=== PATIENT | female | born 1965 | race Caucasian/White ===

== ENCOUNTER 2016-03-29 22:38 | Emergency (ER) | payer MEDICARE, OTHER ==
[~2016-03-29] VITALS: Ht 167.6 cm; Wt 74.8 kg
[~2016-03-29 22:38] MED LIST: ADVAIR HFA 115-12 GM INH; ALBUTEROL SULF8.5 GM INH; AMBIEN5 MG ORAL; AMOXICILIN PO; AMOXICILLIN500 MG ORAL; ATIVAN1 MG ORAL; ATIVAN2 MG/ML IM; AZITHROMYCIN250 MG ORAL; AZITHROMYCIN250 MG PO; BACITRACIN15 GM TOPIC; BACTRIM DS TAB1 EAC1 ORAL; CATAPRES0.1 MG ORAL; CIPRO500 MG PO; DILAUDID4 MG ORAL; DOXYCYCLINE MO100 M2 PO; DOXYCYCLINE MO100 MG ORAL; FIORICET1 EA ORAL; IBUPROFEN600 MG PO; IMITREX50 MG ORAL; INDERAL10 MG PO; INDERAL20 MG PO; KEFLEX500 MG ORAL; KETOCONAZOLE15 GM TOP; METRONIDAZOLE500 MG ORAL; MYLANTA30 M1 ORAL; NEURONTIN100 MG ORAL; NORCO 10/3251 EA ORAL; ONDANSETRON ODT4 MG ORAL; PROPRANOLOL HCL60 M1 PO; ROBAXIN500 MG PO; ROBITUSSIN100 MG/52 ORAL; SOMA350 MG PO; TRAMADOL HCL50 MG ORAL; TRAMADOL HCL50 MG PO; ULTRAM50 MG PO; VALIUM2 MG ORAL; VICODIN 5-5001 EACH PO; ZITHROMAX250 MG ORAL; ZOFRAN ODT4 MG ORAL
--- NOTE | 2016-03-29 22:59 | Emergency Room Report ---
History of Present Illness General Chief Complaint: Medication Refill Source: Patient Present Illness HPI Is a 50-year-old female who is visiting from [place]. She forgot to bring her Inderal for mitral valve prolapse and Neurontin for neuropathy. She's been out of it for 2 days. Limited back for another couple days. Denies any fever chills denies any nausea vomiting. No other complaint. Allergies: Coded Allergies: ASPIRIN (Verified Allergy, Intermediate, disorientation, 08/07/12) NSAIDS (NON-STEROIDAL ANTI-INFLAMMA (Verified Adverse Reaction, Intermediate, GI UPSET, 01/18/12) Patient History Past Medical History: see triage record, old chart reviewed Past Surgical History: other Pertinent Family History: none Social History: Denies: drug use Now: No Immunizations: other Reviewed Nursing Documentation: PMH: Agreed, PSxH: Agreed Nursing Documentation-PMH Hx Asthma: Yes Hx Gastrointestinal Problems: Yes Hx Neurological Problems: Yes - DISC Review of Systems Eye: Denies: blurred vision, eye pain ENT: Denies: ear pain, nose congestion, throat swelling Respiratory: Denies: cough, shortness of breath Cardiovascular: Denies: chest pain, palpitations Gastrointestinal: Denies: abdominal pain, diarrhea, nausea, vomiting Musculoskeletal: Denies: back pain, joint pain Skin: Denies: rash Neurological: Denies: headache, numbness Endocrine: Denies: increased thirst, increased urine Hematologic/Lymphatic: Denies: easy bruising All Other Systems: negative except mentioned in HPI Physical Exam Vital Signs Date Time Temp Pulse Resp B/P Pulse Ox O2 Delivery O2 Flow Rate FiO2 03/29/16 22:46 97.5 128 15 121/80 96 Room Air vitals with tachycardia Sp02 EP Interpretation: reviewed, normal General Appearance: well appearing, no apparent distress, alert Head: normocephalic, atraumatic Eyes: bilateral eye EOMI, bilateral eye PERRL ENT: hearing grossly normal, normal pharynx Neck: full range of motion, supple, no meningismus Respiratory: chest non-tender, lungs clear, normal breath sounds Cardiovascular #1: regular rate, rhythm, no murmur, tachycardia Gastrointestinal: normal bowel sounds, non tender, no mass, no organomegaly, no bruit, non-distended Musculoskeletal: back normal, gait/station normal, normal range of motion Neurologic: alert, oriented x3 Psychiatric: mood/affect normal Skin: warm/dry Medical Decision Making Diagnostic Impression: Primary Impression: Encounter for medication refill Additional Impression: Arthralgia Qualified Codes: M25.50 - Pain in unspecified joint ER Course Patient here for refill her medication. She also complained of generalized aches and pain. No evidence of ACS, PE, infection. We'll discharge home. Last Vital Signs Date Time Temp Pulse Resp B/P Pulse Ox O2 Delivery O2 Flow Rate FiO2 03/29/16 22:46 97.5 128 15 121/80 96 Room Air Status: improved Disposition: HOME, SELF-CARE Condition: Stable Scripts Propranolol Hcl* (INDERAL*) 40 Mg Tablet 40 MG ORAL BID, #60 TAB 0 Refills Prov: CONSTANZA GERMAIN M.D. 03/29/16 Gabapentin (Neurontin) 300 Mg Capsule 300 MG ORAL THREE TIMES A DAY, #60 CAP 0 Refills Prov: CONSTANZA GERMAIN M.D. 03/29/16 Patient Instructions: Medicine Refill at the Emergency Department Additional Instructions: Followup your DrGiorgio for refills any medication. Return if symptom worsen. Follow with within a week. CONSTANZA GERMAIN M.D. Mar 29, 2016 22:59
[2016-03-29] MEDS ORDERED: Propranolol 10mg tab ORAL ONE (23:00)
[2016-03-29] MEDS ORDERED: PROPRANOLOL HCL40 MG ORAL (23:45)
[2016-03-29] MEDS ORDERED: NEURONTIN300 MG ORAL (23:45)
[2016-03-29] MEDS ORDERED: Acetaminophen 500mg (ES) tab ORAL ONE (23:45)
[2016-03-29 23:59] VITALS: BP 113/83
[2016-07-10] MEDS ORDERED: CYCLOBENZAPRINE10 MG ORAL (13:40)
[2016-07-10] MEDS ORDERED: ZOFRAN ODT4 MG ORAL (13:40)
== END 2016-03-29 23:59 | disposition home or self-care (01) ==
LOC: EMR 23:10
DX: Z76.0 Encounter for issue of repeat prescription (principal); M25.50 Pain in unspecified joint; J45.909 Unspecified asthma, uncomplicated; I34.1 Nonrheumatic mitral (valve) prolapse; G62.9 Polyneuropathy, unspecified; Z88.6 Allergy status to analgesic agent
CPT/HCPCS: 99284

== ENCOUNTER 2016-04-10 18:40 | Emergency (ER) | payer MEDICARE, OTHER ==
[~2016-04-10] VITALS: Ht 167.6 cm; Wt 74.8 kg
[~2016-04-10 18:40] MED LIST changes: +NEURONTIN300 MG ORAL; +PROPRANOLOL HCL40 MG ORAL
[2016-04-10] MEDS ORDERED: Metoclopramide 10mg/2ml Inj IM ONE (20:15)
[2016-04-10] MEDS ORDERED: Loperamide 2mg cap ORAL ONE (20:30)
[2016-04-10 21:24] LABS: APPEARANCE,URINE CLEAR; KETONES,URINE NEGATIVE (NEGATIVE); LEUKOCYTE ESTERASE ,URINE NEGATIVE (NEGATIVE); NITRITE,URINE NEGATIVE (NEGATIVE); PH,URINE 6 (4.5-8.0); PROTEIN,URINE NEGATIVE (NEGATIVE); UROBILINOGEN,URINE NORMAL MG/DL (0.0-1.0)
[2016-04-10] MEDS ORDERED: ZOFRAN4 M3 ORAL (21:34)
[2016-04-10] MEDS ORDERED: LOPERAMIDE2 M1 PO (21:34)
[2016-04-10 21:54] VITALS: BP 125/82
--- NOTE | 2016-04-13 21:01 | Emergency Room Report ---
History of Present Illness General Chief Complaint: Diarrhea Source: Patient Present Illness HPI Patient is a 50-year-old female presented after increased had diarrhea. The patient thinks that she may have some bad food exposure. The patient prior history of chronic pain. Patient reported having a prior history of migraine and states that she been having increased throbbing type headache associated with some nausea. She reported having some watery diarrhea. She denied any hematemesis or bloody stools. She denied any severe abdominal pain. She reported having some abdominal cramping. She denied any localized pain to her abdomen. Allergies: Coded Allergies: ASPIRIN (Verified Allergy, Intermediate, disorientation, 08/07/12) NSAIDS (NON-STEROIDAL ANTI-INFLAMMA (Verified Adverse Reaction, Intermediate, GI UPSET, 01/18/12) Patient History Past Medical History: see triage record Now: No Reviewed Nursing Documentation: PMH: Agreed, PSxH: Agreed Nursing Documentation-PMH Hx Asthma: Yes Hx Gastrointestinal Problems: Yes Hx Neurological Problems: Yes - DISC Review of Systems All Other Systems: negative except mentioned in HPI Physical Exam Vital Signs Date Time Temp Pulse Resp B/P Pulse Ox O2 Delivery O2 Flow Rate FiO2 04/10/16 19:50 98.6 119 18 140/89 98 Room Air Sp02 EP Interpretation: reviewed, normal General Appearance: normal inspection, well appearing, no apparent distress, alert, GCS 15 Head: atraumatic ENT: normal ENT inspection, hearing grossly normal, normal voice Neck: normal inspection, full range of motion, supple, no bony tend Respiratory: normal inspection, lungs clear, normal breath sounds, no respiratory distress, no retraction, no wheezing Cardiovascular #1: regular rate, rhythm, no edema Gastrointestinal: normal inspection, normal bowel sounds, non tender, soft, no guarding, no hernia Genitourinary: no CVA tenderness Musculoskeletal: normal inspection, back normal, normal range of motion Neurologic: normal inspection, alert, oriented x3, responsive, speech normal Psychiatric: normal inspection, judgement/insight normal, mood/affect normal Skin: normal color, no rash, other - multiple excoriations Medical Decision Making Diagnostic Impression: Primary Impression: Diarrhea Additional Impression: Enteritis ER Course Patient presented for abdominal pain. Differential diagnoses included ischemic bowel, appendicitis, perforated viscus, abdominal aortic aneurysm, inferior myocardial infarction, viral gastroenteritis Patient's benign exam and does not appear to require any further imaging or laboratory testing at this time. The patient was given IM Reglan as well as Imodium. The patient stated that she had improvement in both her headache and diarrhea. The patient does not appear imaging at this time and she's had prior history of migraine type headaches and this appears to be a viral illness. The patient is advised to follow up with primary care doctor in 1-2 days. Patient is advised to return if any worsening condition or if any changes in status that are concerning. Labs Test 04/10/16 21:00 Urine Color Pale yellow Urine Appearance Clear Urine pH 6 (4.5-8.0) Urine Specific [place] 1.010 (1.005-1.035) Urine Protein Negative (NEGATIVE) Urine Glucose (UA) Negative (NEGATIVE) Urine Ketones Negative (NEGATIVE) Urine Occult Blood Negative (NEGATIVE) Urine Nitrite Negative (NEGATIVE) Urine Bilirubin Negative (NEGATIVE) Urine Urobilinogen Normal MG/DL (0.0-1.0) Urine Leukocyte Esterase Negative (NEGATIVE) Urine Opiates Screen Negative (NEGATIVE) Urine Barbiturates Screen Negative (NEGATIVE) Phencyclidine (PCP) Screen Negative (NEGATIVE) Urine Amphetamines Screen Negative (NEGATIVE) Urine Benzodiazepines Screen Negative (NEGATIVE) Urine Cocaine Screen Negative (NEGATIVE) Urine Marijuana (THC) Screen Positive (NEGATIVE) Last Vital Signs Date Time Temp Pulse Resp B/P Pulse Ox O2 Delivery O2 Flow Rate FiO2 04/10/16 21:54 98.3 100 18 125/82 98 Room Air Status: improved Disposition: HOME, SELF-CARE Condition: Stable Scripts Ondansetron* (ZOFRAN*) 4 Mg Tablet 4 MG ORAL Q6H Y for Nausea & Vomiting, #14 TAB Prov: Jordan Mckeon 04/10/16 Loperamide Hcl (LOPERAMIDE) 2 Mg Tablet 2 MG PO TWICE A DAY for Diarrhea, #14 TAB Prov: Jordan Mckeon 04/10/16 Referrals: NOT CHOSEN IPA/MD,REFERRING (PCP) Patient Instructions: Rehydration, Adult Jordan Mckeon Apr 13, 2016 21:00
[2016-07-10] MEDS ORDERED: ZOFRAN ODT4 MG ORAL (13:40)
[2016-07-10] MEDS ORDERED: CYCLOBENZAPRINE10 MG ORAL (13:40)
== END 2016-04-10 21:55 | disposition home or self-care (01) ==
LOC: EMR 21:45
DX: R19.7 Diarrhea, unspecified (principal); K52.9 Noninfective gastroenteritis and colitis, unspecified; R51 Headache; R11.0 Nausea; Z88.6 Allergy status to analgesic agent; Z87.19 Personal history of other diseases of the digestive system; Z87.09 Personal history of other diseases of the respiratory system
CPT/HCPCS: 80300; 81003; 96372; 99283; J2765

== ENCOUNTER 2016-05-08 11:14 | Emergency (ER) | payer MEDICARE, OTHER ==
[~2016-05-08] VITALS: Ht 167.6 cm; Wt 74.8 kg
[~2016-05-08 11:14] MED LIST changes: +LOPERAMIDE2 M1 PO; +ZOFRAN4 M3 ORAL
[2016-05-08 12:20] VITALS: BP 125/88
[2016-05-08] MEDS ORDERED: Metoclopramide 10mg/10ml Liq ORAL ONE (12:30)
--- NOTE | 2016-05-08 12:37 | Emergency Room Report ---
History of Present Illness General Chief Complaint: General Complaint Present Illness HPI 50-year-old female presents to the emergency department c/o migraine 01/01 in severity She describes her typical migraine, is not currently prescribed medications. previously was on Imitrex and Topamax, however her Dr. hutchinson due to consistent use he was worried about rebound CROWELL as SE. patient denies weakness, vomiting, recent head injury or recent spinal procedure. Patient reports nausea and mild photophobia. Patient describes pulsatile headache located in the front, with progressive onset. She denies recent head injury, fevers or chills or neck pain. Denies CP, Palpitations, LOC, AMS, dizziness, Changes in Vision, Sensation, paresthesias, or a sudden severe headache. Allergies: Coded Allergies: ASPIRIN (Verified Allergy, Intermediate, disorientation, 08/07/12) NSAIDS (NON-STEROIDAL ANTI-INFLAMMA (Verified Adverse Reaction, Intermediate, GI UPSET, 01/18/12) Patient History Past Medical History: see triage record Past Surgical History: none Pertinent Family History: none Last Menstrual Period: 2009 Now: No Immunizations: UTD Reviewed Nursing Documentation: PMH: Agreed, PSxH: Agreed Nursing Documentation-PMH Hx Asthma: Yes Hx Gastrointestinal Problems: Yes Hx Neurological Problems: Yes - DISC Review of Systems All Other Systems: negative except mentioned in HPI Physical Exam Vital Signs Date Time Temp Pulse Resp B/P Pulse Ox O2 Delivery O2 Flow Rate FiO2 05/08/16 12:10 97.3 114 20 125/88 100 Room Air Sp02 EP Interpretation: reviewed, normal General Appearance: no apparent distress, alert, GCS 15, non-toxic Head: normocephalic, atraumatic Eyes: bilateral eye PERRL, bilateral eye normal inspection ENT: hearing grossly normal, normal pharynx, no angioedema, normal voice Neck: full range of motion, supple/symm/no masses Respiratory: chest non-tender, lungs clear, normal breath sounds, speaking full sentences Cardiovascular #1: regular rate, rhythm, no edema Gastrointestinal: normal bowel sounds, non tender, soft, no guarding, no rebound Rectal: deferred Musculoskeletal: back normal, gait/station normal, normal range of motion, no calf tenderness Neurologic: alert, oriented x3, responsive, motor strength/tone normal, sensory intact, speech normal, no pronator Psychiatric: judgement/insight normal, memory normal, mood/affect normal, no suicidal/homicidal ideation Skin: normal color, no rash, warm/dry, well hydrated Lymphatic: no adenopathy Medical Decision Making PA Attestation Dr. Baez is my supervising Physician whom patient management has been discussed with. Diagnostic Impression: Primary Impression: migraine ER Course Pt. presents to the ED c/o migraine 10/10 in severity ., describes typical migraine, is not currently prescribed medications. previously was on immitrex and topamax, however her d/bryan due to consistent use he was worried about rebound CROWELL as SE. Ddx considered but are not limited to migraine, SAH, Psedudo motor Cerebri, Mass lesion, Cluster CROWELL, Tension CROWELL, Post lumbar puncture CROWELL. Vital signs: are WNL, pt. is afebrile H&PE are most consistent with migraine headache ORDERS: none required at this time. ED INTERVENTIONS: -10mlgReglan - 1000mg Tylenol PO DISCHARGE: At this time pt. is stable for d/c to home. Will provide printed patient care instructions, and any necessary prescriptions. Care plan and follow up instructions have been discussed with the patient prior to discharge. Last Vital Signs Date Time Temp Pulse Resp B/P Pulse Ox O2 Delivery O2 Flow Rate FiO2 05/08/16 12:20 97.3 114 20 125/88 100 Room Air Disposition: HOME, SELF-CARE Condition: Stable Scripts Metoclopramide Hcl* (REGLAN*) 10 Mg Tablet 10 MG ORAL THREE TIMES A DAY, #20 TAB Prov: Carla Urbano P.A. 05/08/16 Acetamin/Butalbital/Caffeine* (FIORICET*) 1 Ea Tab 1 TAB ORAL Q6H, #5 TAB 0 Refills Prov: Carla Urbano P.A. 05/08/16 Referrals: NOT CHOSEN IPA/,REFERRING (PCP) Patient Instructions: Migraine Headache, [id number] Additional Instructions: Take medications as directed. Follow up with Neurologist in 3-5 days Return sooner to ED if new symptoms occur, or current symptoms become worse. Do not drink alcohol, drive, or operate heavy machinery while taking Fioricet as this may cause drowsiness. - Please note that this Emergency Department Report was dictated using [employer] laboratory technician technology software, occasionally this can lead to erroneous entry secondary to interpretation by the dictation equipment. Carla Urbano May 08, 2016 12:37
[2016-05-08 13:00] VITALS: BP 123/85
[2016-05-08] MEDS ORDERED: Acetaminophen 500mg (ES) tab ORAL ONE (13:00)
[2016-05-08] MEDS ORDERED: REGLAN10 MG ORAL (13:08)
[2016-05-08] MEDS ORDERED: FIORICET1 EA ORAL (13:08)
[2016-05-08 13:26] VITALS: BP 123/85
[2016-07-10] MEDS ORDERED: CYCLOBENZAPRINE10 MG ORAL (13:40)
[2016-07-10] MEDS ORDERED: ZOFRAN ODT4 MG ORAL (13:40)
== END 2016-05-08 13:27 | disposition home or self-care (01) ==
LOC: EMR 12:30
DX: G43.909 Migraine, unspecified, not intractable, without status migrainosus (principal); J45.909 Unspecified asthma, uncomplicated; Z88.6 Allergy status to analgesic agent
CPT/HCPCS: 99284

== ENCOUNTER 2016-05-19 12:48 | Emergency (ER) | payer MEDICARE, OTHER ==
[~2016-05-19] VITALS: Ht 167.6 cm; Wt 74.8 kg
[~2016-05-19 12:48] MED LIST changes: +REGLAN10 MG ORAL
[2016-05-19] MEDS ORDERED: Acetaminophen 500mg (ES) tab ORAL ONE (13:45)
[2016-05-19] MEDS ORDERED: Metoclopramide 10mg/10ml Liq ORAL ONE (13:45)
--- NOTE | 2016-05-19 14:12 | Emergency Room Report ---
History of Present Illness General Chief Complaint: Headache Present Illness HPI 50-year-old male presents emergency department complaining of 9/10 in severity progressive right sided throbbing headache x2 days. Patient has a history of migraines, and states that the headache that she currently has similar to migraines that she has had in the past. Patient also reports photophobia and mild nausea denies vomiting. Denies recent head injury/trauma. Patient denies weakness, imbalance, dizziness. She states that she is out of her migraine medication Fioricet at home. Patient states that her appointment with her neurologist is May 23. Pt also c/o increased in her heartburn symptoms, pt. states she has a hx of GERD however does not regularly take medications. Denies CP, Palpitations, LOC, AMS, dizziness, Changes in Vision, Sensation, paresthesias, or a sudden severe headache. Allergies: Coded Allergies: ASPIRIN (Verified Allergy, Intermediate, disorientation, 08/07/12) NSAIDS (NON-STEROIDAL ANTI-INFLAMMA (Verified Adverse Reaction, Intermediate, GI UPSET, 01/18/12) Patient History Past Medical History: see triage record, migraines Past Surgical History: none Pertinent Family History: none Now: No : 1 Para: 0 Reviewed Nursing Documentation: PMH: Agreed, PSxH: Agreed Nursing Documentation-PMH Hx Asthma: Yes Hx Gastrointestinal Problems: Yes - Peptic ulcer Hx Neurological Problems: Yes - Degenerative disc disease Review of Systems All Other Systems: negative except mentioned in HPI Physical Exam Vital Signs Date Time Temp Pulse Resp B/P Pulse Ox O2 Delivery O2 Flow Rate FiO2 05/19/16 12:54 98.2 115 16 120/81 99 Room Air Sp02 EP Interpretation: reviewed, abnormal - tachycardic at 116 bpm General Appearance: no apparent distress, alert, GCS 15, non-toxic Head: normocephalic, atraumatic Eyes: bilateral eye PERRL, bilateral eye normal inspection, bilateral eye photophobia ENT: hearing grossly normal, normal pharynx, no angioedema, normal voice Neck: full range of motion, no meningismus, no bony tend, supple/symm/no masses Respiratory: lungs clear, normal breath sounds, speaking full sentences Cardiovascular #1: regular rate, rhythm, no edema Gastrointestinal: non tender, soft, non-distended Rectal: deferred Genitourinary: normal inspection, no CVA tenderness Musculoskeletal: back normal, gait/station normal, normal range of motion, non- tender, no calf tenderness Neurologic: alert, oriented x3, responsive, motor strength/tone normal, sensory intact, speech normal Psychiatric: judgement/insight normal, memory normal, mood/affect normal, no suicidal/homicidal ideation Reflexes: 4+ bicep (R), 4+ bicep (L), 4+ tricep (R), 4+ tricep (L), 4+ knee (R) , 4+ knee (L) Skin: normal color, no rash, warm/dry, well hydrated Lymphatic: no adenopathy Medical Decision Making PA Attestation Dr. Urban is my supervising Physician whom patient management has been discussed with. Diagnostic Impression: Primary Impression: migraine Additional Impression: History of gastroesophageal reflux (GERD) ER Course 50-year-old male presents emergency department complaining of 9/10 in severity progressive right sided throbbing headache x2 days. Patient has a history of migraines, and states that the headache that she currently has similar to migraines that she has had in the past. Patient also reports photophobia and mild nausea denies vomiting. Denies recent head injury/trauma. Patient denies weakness, imbalance, dizziness. She states that she is out of her migraine medication Fioricet at home. Pt also c/o increased in her heartburn symptoms, pt. states she has a hx of GERD however does not regularly take medications Ddx considered but are not limited to migraine, SAH, Psedudo motor Cerebri, Mass lesion, Cluster CROWELL, Tension CROWELL, Post lumbar puncture CROWELL, GERD, ACS Vital signs: are WNL, pt. is afebrile H&PE are most consistent with migraine headache ORDERS: No imaging required at this time as no focal neuro deficits, pt. described progressive onset of CROWELL similar to migraines she has experienced in the past. -UA: unremarkable, few bacteria, few squamous cells, no WBC's, no Leuks, consistent w/ contaminated specimen. - EKG ( Performed without initial order, as in triage pt. c/o chest pain, upon PE pt. has hx of GERD and described burning sensation in epigastric area) 105 sinus tachycardic with no acute ST elevations, most likely secondary to migraine pain per interpretation by Dr. Baez. ED INTERVENTIONS: -10mg Reglan PO -1000mg Tylenol PO -150mg Zantac PO Upon re-evaluation pt states all of her symptoms have subsided. DISCHARGE: At this time pt. is stable for d/c to home. Will provide printed patient care instructions, and any necessary prescriptions. Care plan and follow up instructions have been discussed with the patient prior to discharge. Labs Test 05/19/16 14:16 Urine Color Yellow Urine Appearance Clear Urine pH 6.5 (4.5-8.0) Urine Specific [place] 1.015 (1.005-1.035) Urine Protein 1+ (NEGATIVE) Urine Glucose (UA) Negative (NEGATIVE) Urine Ketones 1+ (NEGATIVE) Urine Occult Blood Negative (NEGATIVE) Urine Nitrite Negative (NEGATIVE) Urine Bilirubin Negative (NEGATIVE) Urine Urobilinogen Normal MG/DL (0.0-1.0) Urine Leukocyte Esterase 1+ (NEGATIVE) Urine RBC 0-2 /HPF (0 - 2) Urine WBC 2-4 /HPF (0 - 2) Urine Squamous Epithelial Cells Few /LPF (NONE/OCC) Urine Bacteria Few /HPF (NONE) EKG Diagnostic Results EP Interpretation: interpreted by Dr. Baez Rate: tachycardiac Rhythm: NSR ST Segments: no acute changes ASA given to the pt in ED: No PA Scribe Text 105 sinus tachycardia, most likely secondary to migraine pain per interpretation by Dr. Baez. Last Vital Signs Date Time Temp Pulse Resp B/P Pulse Ox O2 Delivery O2 Flow Rate FiO2 05/19/16 12:54 98.2 115 16 120/81 99 Room Air Scripts Ranitidine Hcl* (ZANTAC*) 150 Mg Tablet 150 MG ORAL TWICE A DAY, #30 TAB Prov: Carla Urbano 05/19/16 Acetamin/Butalbital/Caffeine* (FIORICET*) 1 Ea Tab 1 TAB ORAL Q6H, #5 TAB 0 Refills Prov: Carla Urbano 05/19/16 Patient Instructions: Migraine Headache Additional Instructions: Take medications as directed. Follow up with Neurologist in 3-5 days Return sooner to ED if new symptoms occur, or current symptoms become worse. Do not drink alcohol, drive, or operate heavy machinery while taking Fioricet as this may cause drowsiness. - Please note that this Emergency Department Report was dictated using [employer] captain technology software, occasionally this can lead to erroneous entry secondary to interpretation by the dictation equipment. Carla Urbano May 19, 2016 14:12
[2016-05-19 14:29] LABS: APPEARANCE,URINE CLEAR; KETONES,URINE 1+ (NEGATIVE); LEUKOCYTE ESTERASE ,URINE 1+ (NEGATIVE); NITRITE,URINE NEGATIVE (NEGATIVE); PH,URINE 6.5 (4.5-8.0); PROTEIN,URINE 1+ (NEGATIVE); UROBILINOGEN,URINE NORMAL MG/DL (0.0-1.0)
[2016-05-19 14:39] LABS: BACTERIA,URINE FEW /HPF; RBC,URINE 0-2 /HPF (0 - 2); SQUAMOUS EPITHELIAL CELL,UR FEW /LPF (NONE/OCC)
[2016-05-19] MEDS ORDERED: FIORICET1 EA ORAL (14:45)
[2016-05-19 15:08] VITALS: BP 120/81
[2016-05-19] MEDS ORDERED: ZANTAC150 MG ORAL (15:16)
[2016-05-19 15:17] VITALS: BP 129/63
--- NOTE | 2016-05-23 23:41 | Cardiology Report ---
APPROVED REPORT EKG Measurement Heart [id number] Sinus tachycardia Otherwise normal ECG
[2016-07-10] MEDS ORDERED: CYCLOBENZAPRINE10 MG ORAL (13:40)
[2016-07-10] MEDS ORDERED: ZOFRAN ODT4 MG ORAL (13:40)
== END 2016-05-19 15:20 | disposition home or self-care (01) ==
LOC: EMR 14:15
DX: G43.909 Migraine, unspecified, not intractable, without status migrainosus (principal); Z87.19 Personal history of other diseases of the digestive system; R11.0 Nausea; Z88.6 Allergy status to analgesic agent
CPT/HCPCS: 81003; 93005; 99284

== ENCOUNTER 2016-06-12 09:44 | Emergency (ER) | payer MEDICARE, OTHER ==
[~2016-06-12] VITALS: Ht 167.6 cm; Wt 78.0 kg
[~2016-06-12 09:44] MED LIST changes: +ZANTAC150 MG ORAL
[2016-06-12 10:10] VITALS: BP 128/92
[2016-06-12] MEDS ORDERED: ROBAXIN-750750 MG PO (11:26)
[2016-06-12] MEDS ORDERED: TRAMADOL HCL50 MG ORAL (11:26)
[2016-06-12 11:39] VITALS: BP 128/92
--- NOTE | 2016-06-12 11:41 | Emergency Room Report ---
History of Present Illness General Chief Complaint: Back Pain-No Injury Source: Patient Present Illness HPI 50 YO F with upper left back spasm since yesterday. Denies heavy lifting, direct trauma. Has had before. Thinks she "lay on it funny." Requesting Rx Tramadol, Robaxin. CURES indicates recent Rx for Tramadol but patient states " I finished it." Denies lower extremity pain, fever/chills, urinary complaints, retention. States she was at [facility] 3 days ago for similar request. Allergies: Coded Allergies: ASPIRIN (Verified Allergy, Intermediate, disorientation, 08/07/12) NSAIDS (NON-STEROIDAL ANTI-INFLAMMA (Verified Adverse Reaction, Intermediate, GI UPSET, 01/18/12) Patient History Past Medical History: other - back pain Past Surgical History: none Pertinent Family History: none Social History: Denies: alcohol use, drug use, smoking Last Menstrual Period: na Now: No Immunizations: UTD Reviewed Nursing Documentation: PMH: Agreed, PSxH: Agreed Nursing Documentation-PMH Past Medical History: No History, Except For Hx Asthma: Yes Hx Gastrointestinal Problems: Yes - Peptic ulcer Hx Neurological Problems: Yes Review of Systems All Other Systems: negative except mentioned in HPI Physical Exam Vital Signs Date Time Temp Pulse Resp B/P Pulse Ox O2 Delivery O2 Flow Rate FiO2 06/12/16 09:56 98.2 83 18 128/92 98 Room Air Sp02 EP Interpretation: reviewed, normal General Appearance: normal inspection, well appearing, no apparent distress, alert Head: atraumatic ENT: normal ENT inspection, hearing grossly normal, normal voice Neck: normal inspection, full range of motion, supple, no bony tend Respiratory: normal inspection, lungs clear, normal breath sounds, no respiratory distress, no retraction, no wheezing Cardiovascular #1: regular rate, rhythm, no edema Gastrointestinal: normal inspection, normal bowel sounds, non tender, soft, no guarding, no hernia Genitourinary: no CVA tenderness Musculoskeletal: normal inspection, back normal, normal range of motion, Christy' s Sign negative Neurologic: normal inspection, alert, oriented x3, responsive, director geothermal operations III-XII nml as tested, motor strength/tone normal, speech normal Psychiatric: normal inspection, judgement/insight normal, mood/affect normal Skin: normal inspection Lymphatic: normal inspection Medical Decision Making Diagnostic Impression: Primary Impression: Low back strain Additional Impression: Drug-seeking behavior ER Course I agreed to refill Rx as patient requested, despite recent Rx also for opioid. Then RN Yary tells me patient wants medication now, even though I already had conversation with patient that I would give Rx and she had confirmed she could get to Pharmacy when leaving ER I am concerned for narcotic seeking behavior if patient is demanding medication in the ED when she is more than capable to get to pharmacy during the day and has no physical limitations to prevent this. Last Vital Signs Date Time Temp Pulse Resp B/P Pulse Ox O2 Delivery O2 Flow Rate FiO2 06/12/16 10:10 98.2 83 18 128/92 98 Room Air Status: improved Disposition: HOME, SELF-CARE Condition: Improved Scripts Methocarbamol* (ROBAXIN-750*) 750 Mg Tablet 750 MG PO TID, #30 TAB 0 Refills Prov: MILY COLLINS M.D. 06/12/16 Tramadol Hcl* (ULTRAM*) 50 Mg Tablet 50 MG ORAL Q6H Y for For Pain, #30 TAB 0 Refills Prov: MILY COLLINS M.D. 06/12/16 Referrals: NON PHYSICIAN (PCP) Patient Instructions: Back Pain, Adult MILY COLLINS M.D. Jun 12, 2016 11:41
[2016-07-10] MEDS ORDERED: ZOFRAN ODT4 MG ORAL (13:40)
[2016-07-10] MEDS ORDERED: CYCLOBENZAPRINE10 MG ORAL (13:40)
== END 2016-06-12 11:41 | disposition home or self-care (01) ==
LOC: EMR 10:40
DX: S39.012A Strain of muscle, fascia and tendon of lower back, initial encounter (principal); X58.XXXA Exposure to other specified factors, initial encounter; Y93.9 Activity, unspecified; Y92.9 Unspecified place or not applicable; Z76.5 Malingerer [conscious simulation]; Z88.6 Allergy status to analgesic agent; Z87.11 Personal history of peptic ulcer disease
CPT/HCPCS: 99284

== ENCOUNTER 2016-06-17 01:51 | Emergency (ER) | payer MEDICARE, OTHER ==
[~2016-06-17] VITALS: Ht 167.6 cm; Wt 79.4 kg
[~2016-06-17 01:51] MED LIST changes: +ROBAXIN-750750 MG PO
--- NOTE | 2016-06-17 02:05 | Emergency Room Report ---
History of Present Illness General Chief Complaint: Vomiting Source: Patient Present Illness HPI Is a 50-year-old female with history of chronic pain. She's taking tramadol. She presents with chief complaint of vomiting. Said she woke up and felt hot and had several episode vomiting. She has been to several hospital in the last few days. She was at [facility] 3 days ago. She was at [facility] yesterday. Now here. She is from [place]. Patient denies chest pain. Also complaining abdominal pain. Complaining of fever and vomiting. Allergies: Coded Allergies: ASPIRIN (Verified Allergy, Intermediate, disorientation, 08/07/12) NSAIDS (NON-STEROIDAL ANTI-INFLAMMA (Verified Adverse Reaction, Intermediate, GI UPSET, 01/18/12) Patient History Past Medical History: see triage record, old chart reviewed Past Surgical History: other Pertinent Family History: none Now: No Immunizations: other Reviewed Nursing Documentation: PMH: Agreed, PSxH: Agreed Nursing Documentation-PMH Hx Asthma: Yes Hx Gastrointestinal Problems: Yes - Peptic ulcer Hx Neurological Problems: Yes Review of Systems Eye: Denies: blurred vision, eye pain ENT: Denies: ear pain, nose congestion, throat swelling Respiratory: Denies: cough, shortness of breath Cardiovascular: Denies: chest pain, palpitations Gastrointestinal: Reports: nausea, vomiting, Denies: abdominal pain, diarrhea Musculoskeletal: Denies: back pain, joint pain Skin: Denies: rash Neurological: Denies: headache, numbness Endocrine: Denies: increased thirst, increased urine Hematologic/Lymphatic: Denies: easy bruising All Other Systems: negative except mentioned in HPI Physical Exam Vital Signs Date Time Temp Pulse Resp B/P Pulse Ox O2 Delivery O2 Flow Rate FiO2 06/17/16 01:55 97.9 90 16 128/59 98 Room Air vitals normal Sp02 EP Interpretation: reviewed, normal General Appearance: well appearing, no apparent distress, alert Head: normocephalic, atraumatic Eyes: bilateral eye EOMI, bilateral eye PERRL ENT: hearing grossly normal, normal pharynx Neck: full range of motion, supple, no meningismus Respiratory: chest non-tender, lungs clear, normal breath sounds Cardiovascular #1: regular rate, rhythm, no murmur Gastrointestinal: normal bowel sounds, non tender, no mass, no organomegaly, no bruit, non-distended Musculoskeletal: back normal, gait/station normal, normal range of motion Psychiatric: mood/affect normal Skin: warm/dry Medical Decision Making Diagnostic Impression: Primary Impression: Vomiting Qualified Codes: R11.2 - Nausea with vomiting, unspecified ER Course Isn't complaining of vomiting but she came in with a half empty bottle of Coca- Cola. She has no vomiting here. She been sleeping comfortably. On the [facility] system, she has multiple prescription of tramadol another pain medication from multiple different doctors. I see no evidence of acute abdomen. Abdomen exam is soft. We'll discharge home. Last Vital Signs Date Time Temp Pulse Resp B/P Pulse Ox O2 Delivery O2 Flow Rate FiO2 06/17/16 01:55 97.9 90 16 128/59 98 Room Air Status: improved Disposition: HOME, SELF-CARE Condition: Stable Scripts Ondansetron (Zofran) 4 Mg Tablet 4 MG ORAL Q6H Y for Nausea & Vomiting, #10 TAB 0 Refills Prov: CONSTANZA GERMAIN M.D. 06/17/16 Patient Instructions: Nausea and Vomiting, Adult Additional Instructions: Followup with your DrGiorgio in 7 days. Return worse. CONSTANZA GERMAIN M.D. Jun 17, 2016 02:05
[2016-06-17] MEDS ORDERED: CLINDAMYCIN HC150 MG ORAL (02:13)
[2016-06-17] MEDS ORDERED: ZOFRAN4 MG ORAL (03:32)
[2016-06-17 03:45] VITALS: BP 122/70
[2016-07-10] MEDS ORDERED: ZOFRAN ODT4 MG ORAL (13:40)
[2016-07-10] MEDS ORDERED: CYCLOBENZAPRINE10 MG ORAL (13:40)
== END 2016-06-17 03:45 | disposition home or self-care (01) ==
LOC: EMR 03:13
DX: R11.2 Nausea with vomiting, unspecified (principal); R10.9 Unspecified abdominal pain; Z88.6 Allergy status to analgesic agent; J45.909 Unspecified asthma, uncomplicated; Z87.11 Personal history of peptic ulcer disease
CPT/HCPCS: 80300; 99283

== ENCOUNTER → 2016-07-10 | Emergency (ER) | payer MEDICARE, OTHER ==
[~2016-07-10] VITALS: Ht 167.6 cm; Wt 77.1 kg
[~2016-07-10] MED LIST changes: +CLINDAMYCIN HC150 MG ORAL; +CYCLOBENZAPRINE10 MG ORAL; +Ketorolac 60mg Inj IM ONE; +ZOFRAN4 MG ORAL
[2016-07-10 11:42] VITALS: BP 134/83
--- NOTE | 2016-07-10 13:39 | Emergency Room Report ---
History of Present Illness General Chief Complaint: Nausea Source: Patient Present Illness HPI 50 YO female presents to the ED c/o nausea, no vomiting, 7/10 Left sided sided neck pain described as "soreness, and tightness" has hx of cervical disk problems and was told she will need a fusion. pt. also has hx of migraines. Denies trauma or fall. denies weakness, imbalance, pain or paresthesias in the UE's. Denies photophobia. Pt. denies abdominal pain, abdominal tenderness, constipation or diarrhea. pt .reports stomach is "upset" and feels nauseated. Denies numbness tingling or loss of sensation or gross motor movements of the extremities, incontinence of bowel or bladder. Denies CP , Palpitations, LOC, AMS, dizziness, Changes in Vision, Sensation, paresthesias , or a sudden severe headache. Allergies: Coded Allergies: ASPIRIN (Verified Allergy, Intermediate, disorientation, 08/07/12) NSAIDS (NON-STEROIDAL ANTI-INFLAMMA (Verified Adverse Reaction, Intermediate, GI UPSET, 01/18/12) Patient History Past Medical History: see triage record Past Surgical History: none Pertinent Family History: none Last Menstrual Period: na Now: No Immunizations: UTD Reviewed Nursing Documentation: PMH: Agreed, PSxH: Agreed Nursing Documentation-PMH Past Medical History: No History, Except For Hx Asthma: Yes Hx Gastrointestinal Problems: Yes - Peptic ulcer Hx Neurological Problems: Yes Review of Systems All Other Systems: negative except mentioned in HPI Physical Exam Vital Signs Date Time Temp Pulse Resp B/P Pulse Ox O2 Delivery O2 Flow Rate FiO2 07/10/16 11:42 97.9 103 18 134/83 98 Room Air Sp02 EP Interpretation: reviewed, normal General Appearance: no apparent distress, alert, GCS 15, non-toxic Head: normocephalic, atraumatic Eyes: bilateral eye PERRL, bilateral eye normal inspection ENT: hearing grossly normal, normal pharynx, no angioedema, normal voice Neck: full range of motion, no meningismus, no bony tend, supple/symm/no masses , tender lateral - left lateral TTP, no midline TTP of obvious deformity Respiratory: chest non-tender, lungs clear, normal breath sounds, speaking full sentences Cardiovascular #1: regular rate, rhythm, no edema, normal capillary refill Gastrointestinal: normal bowel sounds, non tender, soft, no guarding, no rebound Rectal: deferred Genitourinary: normal inspection, no CVA tenderness Musculoskeletal: back normal, gait/station normal, normal range of motion, non- tender Neurologic: alert, oriented x3, responsive, motor strength/tone normal, sensory intact, cerebellar normal, normal gait, speech normal, no pronator, other - negative hoffmans Psychiatric: judgement/insight normal, memory normal, mood/affect normal Skin: normal color, no rash, warm/dry, well hydrated Lymphatic: no adenopathy Medical Decision Making PA Attestation Dr. Baez is my supervising Physician whom patient management has been discussed with. Diagnostic Impression: Primary Impression: Nausea Additional Impression: Neck muscle strain Qualified Codes: S16.1XXA - Strain of muscle, fascia and tendon at neck level , initial encounter ER Course Pt. presents to the ED c/o nausea, no vomiting, 7/10 Left sided sided neck pain described as "soreness, and tightness" has hx of cervical disk problems and was told she will need a fusion. pt. also has hx of migraines Ddx considered but are not limited to Fracture, dislocation, contusion, epidural abscess, Sprain/Strain/Spasm pt. well known to ED for multiple visits for migraine CROWELL's and Nausea. Vital signs: are WNL, pt. is afebrile H&PE are most consistent with cervical muscle strain/spasm, benign PE, no focal neurological deficit, no weakness. ORDERS: none required at this time. ED INTERVENTIONS: -IM Toradol - Zofran PO pt allowed to rest. Re-EVALUATION: pt. states her pain has subsided and feels much better would like to be d/c. DISCHARGE: At this time pt. is stable for d/c to home. Will provide printed patient care instructions, and any necessary prescriptions. Care plan and follow up instructions have been discussed with the patient prior to discharge. Last Vital Signs Date Time Temp Pulse Resp B/P Pulse Ox O2 Delivery O2 Flow Rate FiO2 07/10/16 11:42 97.9 103 18 134/83 98 Room Air Disposition: HOME, SELF-CARE Condition: Stable Scripts Cyclobenzaprine Hcl* (FLEXERIL*) 10 Mg Tablet 10 MG ORAL THREE TIMES A DAY, #10 TAB Prov: Carla Urbano 07/10/16 Ondansetron Odt* (ZOFRAN ODT*) 4 Mg Tab.rapdis 4 MG ORAL Q6H Y for Nausea & Vomiting, #10 TAB Prov: Carla Urbano 07/10/16 Patient Instructions: Muscle Strain, Ptfe-ds-Nhan, Nausea, Adult Additional Instructions: Take medications as directed. Follow up with PCP in 3-5 days Return sooner to ED if new symptoms occur, or current symptoms become worse. Do not drink alcohol, drive, or operate heavy machinery while taking Muscle relaxer as this may cause drowsiness. - Please note that this Emergency Department Report was dictated using [employer] DT[employer] prepper technology software, occasionally this can lead to erroneous entry secondary to interpretation by the dictation equipment. Carla Urbano Jul 10, 2016 13:39
--- NOTE | 2016-07-10 14:40 | Emergency Room Report ---
History of Present Illness General Chief Complaint: Nausea Source: Patient Present Illness HPI PLEASE SEE ALTERNATE NOTE, this is a blank duplicate. Allergies: Coded Allergies: ASPIRIN (Verified Allergy, Intermediate, disorientation, 08/07/12) NSAIDS (NON-STEROIDAL ANTI-INFLAMMA (Verified Adverse Reaction, Intermediate, GI UPSET, 01/18/12) Patient History Last Menstrual Period: na Nursing Documentation-PMH Past Medical History: No History, Except For Hx Asthma: Yes Hx Gastrointestinal Problems: Yes - Peptic ulcer Hx Neurological Problems: Yes Physical Exam Vital Signs Date Time Temp Pulse Resp B/P Pulse Ox O2 Delivery O2 Flow Rate FiO2 07/10/16 11:42 97.9 103 18 134/83 98 Room Air Medical Decision Making PA Attestation Dr. Baez is my supervising Physician whom patient management has been discussed with. ER Course Please see alternate note, this is a blank duplicate Last Vital Signs Date Time Temp Pulse Resp B/P Pulse Ox O2 Delivery O2 Flow Rate FiO2 07/10/16 11:42 97.9 103 18 134/83 98 Room Air Scripts Cyclobenzaprine Hcl* (FLEXERIL*) 10 Mg Tablet 10 MG ORAL THREE TIMES A DAY, #10 TAB Prov: Carla Urbano.AGiorgio 07/10/16 Ondansetron Odt* (ZOFRAN ODT*) 4 Mg Tab.rapdis 4 MG ORAL Q6H Y for Nausea & Vomiting, #10 TAB Prov: Carla Urbano.AGiorgio 07/10/16 Carla Urbano Jul 10, 2016 14:40
== END | disposition home or self-care (01) ==
LOC: EMR 12:26
DX: R11.0 Nausea (principal); S16.1XXA Strain of muscle, fascia and tendon at neck level, initial encounter; Z88.6 Allergy status to analgesic agent; J45.909 Unspecified asthma, uncomplicated; Z87.11 Personal history of peptic ulcer disease; X58.XXXA Exposure to other specified factors, initial encounter; Y92.9 Unspecified place or not applicable; Y99.8 Other external cause status
CPT/HCPCS: 96372; 99284

== ENCOUNTER 2016-07-28 21:49 | Emergency (ER) | payer MEDICARE, OTHER ==
[~2016-07-28] VITALS: Ht 167.6 cm; Wt 81.6 kg
[~2016-07-28 21:49] MED LIST changes: -Ketorolac 60mg Inj IM ONE
[2016-07-28] MEDS ORDERED: TRAMADOL HCL50 MG ORAL (22:14)
[2016-07-28] MEDS ORDERED: ZYRTEC10 MG ORAL (22:14)
[2016-07-28] MEDS ORDERED: FLONASE ALLERG9.9 ML NS (22:14)
[2016-07-28 22:29] VITALS: BP 120/79
--- NOTE | 2016-07-29 03:10 | Emergency Room Report ---
History of Present Illness General Chief Complaint: Pain Source: Patient Present Illness HPI 50-year-old female presents to ED for evaluation. Patient states she's having seasonal allergy problems. Feels runny nose and congestion. Sneezing. Denies any fevers or chills. Denies cough. Denies ear ache or sore throat. Patient states she normally uses Flonase and Zyrtec but has run out of medication. Patient also states that she has pain in her neck and her back for many years now. Pain is a 7/10, sharp, nonradiating. Patient states she normally takes tramadol for pain. States that she was recently prescribed [place] but believes it is too strong. No other aggravating or relieving factors. Denies any other associated symptoms Allergies: Coded Allergies: ASPIRIN (Verified Allergy, Intermediate, disorientation, 08/07/12) NSAIDS (NON-STEROIDAL ANTI-INFLAMMA (Verified Adverse Reaction, Intermediate, GI UPSET, 01/18/12) Patient History Past Medical History: asthma, ulcer Past Surgical History: none Pertinent Family History: none Social History: Denies: alcohol use, drug use, smoking Now: No Immunizations: UTD Reviewed Nursing Documentation: PMH: Agreed, PSxH: Agreed Nursing Documentation-PMH Hx Asthma: Yes Hx Gastrointestinal Problems: Yes - Peptic ulcer Hx Neurological Problems: Yes Review of Systems All Other Systems: negative except mentioned in HPI Physical Exam Vital Signs Date Time Temp Pulse Resp B/P Pulse Ox O2 Delivery O2 Flow Rate FiO2 07/28/16 21:54 98.1 116 16 120/79 95 Room Air Sp02 EP Interpretation: reviewed, normal General Appearance: no apparent distress, alert, GCS 15, non-toxic Head: normocephalic, atraumatic Eyes: bilateral eye PERRL, bilateral eye normal inspection ENT: hearing grossly normal, normal pharynx, no angioedema, normal voice Neck: full range of motion, supple/symm/no masses Respiratory: chest non-tender, lungs clear, normal breath sounds, speaking full sentences Cardiovascular #1: regular rate, rhythm, no edema Cardiovascular #2: 2+ carotid (R), 2+ carotid (L), 2+ radial (R), 2+ radial (L) , 2+ dorsalis pedis (R), 2+ dorsalis pedis (L) Gastrointestinal: normal bowel sounds, non tender, soft, non-distended, no guarding, no rebound Rectal: deferred Genitourinary: normal inspection, no CVA tenderness Musculoskeletal: back normal, gait/station normal, normal range of motion, non- tender Neurologic: alert, oriented x3, responsive, motor strength/tone normal, sensory intact, speech normal Psychiatric: judgement/insight normal, memory normal, mood/affect normal, no suicidal/homicidal ideation Reflexes: 3+ bicep (R), 3+ bicep (L), 3+ tricep (R), 3+ tricep (L), 3+ knee (R) , 3+ knee (L) Skin: normal color, no rash, warm/dry, well hydrated Lymphatic: no adenopathy Medical Decision Making Diagnostic Impression: Primary Impression: Seasonal allergies Qualified Codes: J30.2 - Other seasonal allergic rhinitis Additional Impression: Chronic pain ER Course 50-year-old female presents to ED refill of her medication. hospital course: After initial history and physical, she documents history of seasonal allergies and takes Zyrtec and Flonase. I agreed to provide her with refills of those medications. Patient is also requesting prescription for tramadol. States that she was recently prescribed [place] which is too strong I reviewed [facility] shows no recent prescriptions being filled. I agreed to provide her with a short course of tramadol until she sees her pain management doctor Diagnosis- seasonal allergies, chronic pain Stable and discharged to home with prescription for Tramadol, Zyrtec, Flonase. Followup with PMD. Return to ED if symptoms recur or worsen Last Vital Signs Date Time Temp Pulse Resp B/P Pulse Ox O2 Delivery O2 Flow Rate FiO2 07/28/16 22:29 98.1 16 120/79 95 Room Air 07/28/16 21:54 116 Status: improved Disposition: HOME, SELF-CARE Condition: Stable Scripts Cetirizine Hcl* (ZYRTEC*) 10 Mg Tablet 10 MG ORAL DAILY, #30 TAB 0 Refills Prov: TAMIKO PATRICIA M.D. 07/28/16 Fluticasone Propionate (Flonase Allergy Relief) 9.9 Ml [place].susp 1 SPRAYS NS BID, #1 UNIT Prov: TAMIKO PATRICIA M.D. 07/28/16 Tramadol Hcl* (ULTRAM*) 50 Mg Tablet 50 MG ORAL Q6H Y for For Pain, #10 TAB 0 Refills Prov: TAMIKO PATRICIA M.D. 07/28/16 Referrals: NON PHYSICIAN (PCP) Patient Instructions: Allergies, [id number] TAMIKO PATRICIA M.D. July 29, 2016 03:10
== END 2016-07-28 22:30 | disposition home or self-care (01) ==
LOC: EMR 22:30
DX: J30.2 Other seasonal allergic rhinitis (principal); G89.29 Other chronic pain; Z88.6 Allergy status to analgesic agent; J45.909 Unspecified asthma, uncomplicated
CPT/HCPCS: 99284

== ENCOUNTER 2016-07-31 16:32 | Emergency (ER) | payer MEDICARE, OTHER ==
[~2016-07-31] VITALS: Ht 170.2 cm; Wt 79.4 kg
[~2016-07-31 16:32] MED LIST changes: +FLONASE ALLERG9.9 ML NS; +ZYRTEC10 MG ORAL
[2016-07-31 17:06] VITALS: BP 122/93
[2016-07-31] MEDS ORDERED: Cephalexin 500mg cap ORAL ONE (17:15)
[2016-07-31] MEDS ORDERED: Tylenol #3 tab (300mg/30mg) ORAL ONE (17:15)
[2016-07-31] MEDS ORDERED: CEPHALEXIN500 MG ORAL (17:24)
[2016-07-31] MEDS ORDERED: ACETAMINOPHEN-1 EAC1 ORAL (17:24)
[2016-07-31 17:37] VITALS: BP 122/93
--- NOTE | 2016-08-02 14:54 | Emergency Room Report ---
History of Present Illness General Chief Complaint: Skin Rash/Abscess Source: Patient Present Illness HPI The patient is a 50-year-old female presenting for right leg pain. The patient states she noticed an insect bite of the right lower leg yesterday and then noticed surrounding redness this morning. Pain is described as a 10 out of 10 dull/throbbing ache and does not radiate. Pain worse with touch. She denies N , V, F, chills, discharge, bleeding, SOB Allergies: Coded Allergies: ASPIRIN (Verified Allergy, Intermediate, disorientation, 08/07/12) NSAIDS (NON-STEROIDAL ANTI-INFLAMMA (Verified Adverse Reaction, Intermediate, GI UPSET, 01/18/12) Patient History Past Medical History: see triage record Pertinent Family History: none Last Menstrual Period: none Now: No Reviewed Nursing Documentation: PMH: Agreed, PSxH: Agreed Nursing Documentation-PMH Past Medical History: No History, Except For Hx Cardiac Problems: Yes - mitro valve prolapse Hx Asthma: Yes Hx Gastrointestinal Problems: Yes - Peptic ulcer Hx Neurological Problems: Yes Review of Systems All Other Systems: negative except mentioned in HPI Physical Exam Vital Signs Date Time Temp Pulse Resp B/P Pulse Ox O2 Delivery O2 Flow Rate FiO2 07/31/16 17:02 98.8 121 18 122/93 98 Room Air Sp02 EP Interpretation: reviewed, normal General Appearance: no apparent distress, alert, GCS 15, non-toxic Head: normocephalic, atraumatic Eyes: bilateral eye PERRL, bilateral eye normal inspection ENT: hearing grossly normal, normal pharynx, no angioedema, normal voice Musculoskeletal: back normal, gait/station normal, normal range of motion Neurologic: alert, oriented x3, responsive, motor strength/tone normal, sensory intact, speech normal Psychiatric: judgement/insight normal, memory normal, mood/affect normal, no suicidal/homicidal ideation Skin: rash - Erythema surrounding punctate lesion of the R proximal calf. TTP. Hot to touch Lymphatic: no adenopathy Medical Decision Making PA Attestation Dr. Castellanos is my supervising physician. Patient management was discussed with my supervising physician Diagnostic Impression: Primary Impression: Cellulitis Qualified Codes: L03.115 - Cellulitis of right lower limb ER Course The patient is a 50-year-old female presenting for right leg pain and redness Ddx considered include but not limited to insect bite, contact dermatitis, cellulitis, DVT PE: afebrile. NAD R lower leg: Erythema surrounding punctate lesion of the R proximal calf. TTP. Hot to touch. No fluctuance. No mid calf tenderness. The patient is given oral antibiotics and pain medication and will be discharged with the same medications. ER precautions are given Last Vital Signs Date Time Temp Pulse Resp B/P Pulse Ox O2 Delivery O2 Flow Rate FiO2 07/31/16 17:37 98.8 88 18 122/93 98 Room Air Status: improved Disposition: HOME, SELF-CARE Condition: Improved Scripts Acetaminophen With Codeine (T#3) (TYLENOL #3 TAB*) Y Tab 1 TAB ORAL Q6HR Y for For Pain, #10 TAB Prov: ARNOLD BENNETT 07/31/16 Cephalexin* (KEFLEX*) 500 Mg Capsule 500 MG ORAL EVERY 6 HOURS, #28 CAP Prov: ARNOLD BENNETT.A. 07/31/16 Referrals: NON PHYSICIAN (PCP) Patient Instructions: Cellulitis Additional Instructions: I discussed my findings with the patient. All questions and concerns have been answered. Treatment and medication compliance have been addressed. I advised the patient that they need to follow up with PMD in 3-5 days. Return to ED if symptoms worsen, new symptoms arise, or if needed for any reason. Patient verbalized understanding of discharge instructions. ARNOLD BENNETT August 02, 2016 14:54
== END 2016-07-31 17:39 | disposition home or self-care (01) ==
LOC: EMR 17:15
DX: L03.115 Cellulitis of right lower limb (principal); Z88.6 Allergy status to analgesic agent; J45.909 Unspecified asthma, uncomplicated
CPT/HCPCS: 99284

== ENCOUNTER 2016-08-08 12:37 | Emergency (ER) | payer MEDICARE, OTHER ==
[~2016-08-08] VITALS: Ht 167.6 cm; Wt 77.1 kg
[~2016-08-08 12:37] MED LIST changes: +ACETAMINOPHEN-1 EAC1 ORAL; +CEPHALEXIN500 MG ORAL
[2016-08-08] MEDS ORDERED: Clindamycin 600mg 50 ML IVPB ONE (13:15)
[2016-08-08 14:47] VITALS: BP 109/71
[2016-08-08] MEDS ORDERED: ACETAMINOPHEN-1 EAC1 ORAL (15:27)
[2016-08-08] MEDS ORDERED: CEPHALEXIN500 MG ORAL (15:27)
[2016-08-08] MEDS ORDERED: BACTRIM 400-801 EACH ORAL (15:27)
[2016-08-08 15:36] VITALS: BP 104/59
--- NOTE | 2016-08-10 20:09 | Emergency Room Report ---
History of Present Illness General Chief Complaint: General Complaint Source: Patient Present Illness HPI The patient is a 50-year-old female presenting for right leg infection. The patient was seen in this emergency department recently for right leg cellulitis and was in [facility] receiving IV antibiotics for the same infection until today. The patient states that she chose to leave AMA because the hospital was mistreating her. She is unsure of which antibiotics she was receiving. She states that the infection has decreased in size. She states pain of the leg is a 9/10 dull ache and does not radiate. Pain worse with touch and movement. She denies any other symptoms including nausea, vomiting, fever, chills, chest pain, shortness of breath, numbness or tingling Allergies: Coded Allergies: ASPIRIN (Verified Allergy, Intermediate, disorientation, 08/07/12) NSAIDS (NON-STEROIDAL ANTI-INFLAMMA (Verified Adverse Reaction, Intermediate, GI UPSET, 01/18/12) Uncoded Allergies: NSAID (Allergy, Unknown, 08/08/16) Patient History Past Medical History: see triage record Pertinent Family History: none Reviewed Nursing Documentation: PMH: Agreed, PSxH: Agreed Nursing Documentation-PMH Past Medical History: No History, Except For Hx Cardiac Problems: Yes - mitro valve prolapse Hx Asthma: Yes Hx Gastrointestinal Problems: Yes - Peptic ulcer Hx Neurological Problems: Yes Review of Systems All Other Systems: negative except mentioned in HPI Physical Exam Vital Signs Date Time Temp Pulse Resp B/P Pulse Ox O2 Delivery O2 Flow Rate FiO2 08/08/16 12:47 98.4 87 14 125/86 97 Room Air Sp02 EP Interpretation: reviewed, normal General Appearance: no apparent distress, alert, GCS 15, non-toxic Head: normocephalic, atraumatic Eyes: bilateral eye PERRL, bilateral eye normal inspection Respiratory: chest non-tender, lungs clear, normal breath sounds, speaking full sentences Cardiovascular #1: regular rate, rhythm, no edema Musculoskeletal: back normal, gait/station normal, normal range of motion, tender - TTP over the medial Neurologic: alert, oriented x3, responsive, motor strength/tone normal, sensory intact, speech normal Psychiatric: judgement/insight normal, memory normal, mood/affect normal, no suicidal/homicidal ideation Skin: well hydrated, other - R leg: there is erythema which is hot to the touch. Central opening which is healing. TTP. Minimal edema. No fluctuance Lymphatic: no adenopathy Medical Decision Making PA Attestation Dr. Hernandez is my supervising physician. Patient management was discussed with my supervising physician Diagnostic Impression: Primary Impression: Cellulitis Qualified Codes: L03.115 - Cellulitis of right lower limb ER Course The patient is a 50-year-old female presenting for right leg infection Ddx considered include but not limited to insect bite, contact dermatitis, eczema, cellulitis PE: vitals WNL. Afebrile. NAD Right lower leg: Medial superior calf has erythema which is tender to palpation. Minimal edema. Hot to the touch. The patient is treated with IV fluids and IV clindamycin She'll be discharged home with by mouth antibiotics and needs to followup with PMD. ER precautions are given Last Vital Signs Date Time Temp Pulse Resp B/P Pulse Ox O2 Delivery O2 Flow Rate FiO2 08/08/16 15:36 71 16 104/59 98 Room Air 08/08/16 12:47 98.4 Status: improved Disposition: HOME, SELF-CARE Condition: Improved Scripts Sulfamethoxazole/Trimethoprim (BACTRIM 400-80 MG TABLET*) 1 Each Tablet 1 TAB ORAL TWICE A DAY, #14 TAB Prov: TERZIANARNOLD P.A. 08/08/16 Cephalexin* (KEFLEX*) 500 Mg Capsule 500 MG ORAL EVERY 6 HOURS, #28 CAP Prov: TERZIAN,ARNOLD P.A. 08/08/16 Acetaminophen With Codeine (T#3) (TYLENOL #3 TAB*) Y Tab 1 TAB ORAL Q6HR Y for For Pain, #10 TAB Prov: TERZIAN,ARNOLD P.A. 08/08/16 Referrals: NOT CHOSEN IPA/MD,REFERRING (PCP) Patient Instructions: Cellulitis Additional Instructions: I discussed my findings with the patient. All questions and concerns have been answered. Treatment and medication compliance have been addressed. I advised the patient that they need to follow up with PMD in 3-5 days. Return to ED if symptoms worsen, new symptoms arise, or if needed for any reason. Patient verbalized understanding of discharge instructions. ARNOLD BENNETT.AGiorgio August 10, 2016 20:09
== END 2016-08-08 15:40 | disposition home or self-care (01) ==
LOC: EMR 13:13
DX: L03.115 Cellulitis of right lower limb (principal); J45.909 Unspecified asthma, uncomplicated; Z88.6 Allergy status to analgesic agent
CPT/HCPCS: 96374; 96375; 99284; J2405; S0077

== ENCOUNTER 2016-08-11 03:45 | Emergency (ER) | payer MEDICARE, OTHER ==
[~2016-08-11] VITALS: Ht 167.6 cm; Wt 74.8 kg
[~2016-08-11 03:45] MED LIST changes: +BACTRIM 400-801 EACH ORAL
[2016-08-11] MEDS ORDERED: Acetaminophen 500mg (ES) tab ORAL ONE ×2 (04:02→04:15)
[2016-08-11] MEDS ORDERED: NEURONTIN300 MG ORAL (04:07)
[2016-08-11] MEDS ORDERED: ROBAXIN500 MG PO (04:07)
--- NOTE | 2016-08-11 04:07 | Emergency Room Report ---
History of Present Illness General Chief Complaint: Pain Source: Patient Present Illness HPI Is a 50-year-old female with chronic pain syndrome. She is being treated for cellulitis. She's been to multiple ER is in the past 2 days. Including this one. She says she's taking her antibiotics as prescribed. She came in because of her neuropathy pain. She did not have any of her Robaxin or Neurontin. Pain is generalize. 10 out of 10. No nausea no vomiting. No fever or chills. No other complaint. Allergies: Coded Allergies: ASPIRIN (Verified Allergy, Intermediate, disorientation, 08/07/12) NSAIDS (NON-STEROIDAL ANTI-INFLAMMA (Verified Adverse Reaction, Intermediate, GI UPSET, 01/18/12) Uncoded Allergies: NSAID (Allergy, Unknown, 08/08/16) Patient History Past Medical History: see triage record, old chart reviewed Past Surgical History: other Pertinent Family History: none Social History: Denies: smoking Last Menstrual Period: NONE Now: No Immunizations: other Reviewed Nursing Documentation: PMH: Agreed, PSxH: Agreed Nursing Documentation-PMH Hx Asthma: Yes Hx Gastrointestinal Problems: Yes - Peptic ulcer Hx Neurological Problems: Yes Review of Systems Eye: Denies: blurred vision, eye pain ENT: Denies: ear pain, nose congestion, throat swelling Respiratory: Denies: cough, shortness of breath Cardiovascular: Denies: chest pain, palpitations Gastrointestinal: Denies: abdominal pain, diarrhea, nausea, vomiting Musculoskeletal: Reports: back pain, joint pain, muscle pain, muscle stiffness Skin: Denies: rash Neurological: Denies: headache, numbness Endocrine: Denies: increased thirst, increased urine Hematologic/Lymphatic: Denies: easy bruising All Other Systems: negative except mentioned in HPI Physical Exam Vital Signs Date Time Temp Pulse Resp B/P Pulse Ox O2 Delivery O2 Flow Rate FiO2 08/11/16 03:49 98.1 80 18 136/90 95 Room Air vitals normal Sp02 EP Interpretation: reviewed, normal General Appearance: well appearing, no apparent distress, alert Head: normocephalic, atraumatic Eyes: bilateral eye EOMI, bilateral eye PERRL ENT: hearing grossly normal, normal pharynx Neck: full range of motion, supple, no meningismus Respiratory: chest non-tender, lungs clear, normal breath sounds Cardiovascular #1: regular rate, rhythm, no murmur Gastrointestinal: normal bowel sounds, non tender, no mass, no organomegaly, no bruit, non-distended Musculoskeletal: back normal, gait/station normal, normal range of motion, other - Her right leg around the knee area: There is a marker to indicate previous cellulitis. The redness is much smaller. Neurologic: alert, oriented x3 Psychiatric: mood/affect normal Skin: warm/dry Medical Decision Making Diagnostic Impression: Primary Impression: Pain ER Course Patient with chronic pain. We'll put her back on her medication. No evidence of sepsis, abscess, cauda equina syndrome to name a few. We'll discharge him. Last Vital Signs Date Time Temp Pulse Resp B/P Pulse Ox O2 Delivery O2 Flow Rate FiO2 08/11/16 03:49 98.1 80 18 136/90 95 Room Air Status: improved Disposition: HOME, SELF-CARE Condition: Stable Scripts Gabapentin (Neurontin) 300 Mg Capsule 300 MG ORAL THREE TIMES A DAY, #30 CAP 0 Refills Prov: CONSTANZA GERMAIN M.D. 08/11/16 Methocarbamol* (ROBAXIN*) 500 Mg Tablet 500 MG PO TID, #30 TAB 0 Refills Prov: CONSTANZA GERMAIN M.D. 08/11/16 Patient Instructions: Chronic Pain Additional Instructions: Followup with your DrGiorgio in 7 days. Return if symptom worsen. Did not go to multiple different hospitals for the same thing. CONSTANZA GERMAIN M.D. August 11, 2016 04:07
[2016-08-11 04:10] VITALS: BP 136/90
== END 2016-08-11 04:10 | disposition home or self-care (01) ==
LOC: EMR 04:00
DX: R52 Pain, unspecified (principal); G89.29 Other chronic pain; Z88.6 Allergy status to analgesic agent; J45.909 Unspecified asthma, uncomplicated
CPT/HCPCS: 99284

== ENCOUNTER 2016-09-21 21:18 | Emergency (ER) | payer MEDICARE, OTHER ==
[~2016-09-21] VITALS: Ht 167.6 cm; Wt 72.6 kg
[2016-09-21] MEDS ORDERED: TYLENOL EXTRA500 MG ORAL (21:33)
[2016-09-21] MEDS ORDERED: CYCLOBENZAPRINE10 MG ORAL (21:33)
[2016-09-21] MEDS ORDERED: ACETAMINOPHEN-1 EAC1 ORAL (21:56)
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
[2016-09-21] MEDS ORDERED: Norco 5mg/325mg tab ORAL ONE (22:00)
[2016-09-21 22:04] VITALS: BP 162/82
== END 2016-09-21 22:05 | disposition home or self-care (01) ==
LOC: EMR 21:57
DX: S46.912A Strain of unspecified muscle, fascia and tendon at shoulder and upper arm level, left arm, initial encounter (principal); Y04.2XXA Assault by strike against or bumped into by another person, initial encounter; Y92.129 Unspecified place in nursing home as the place of occurrence of the external cause; Y99.0 Civilian activity done for income or pay; Z88.6 Allergy status to analgesic agent; I34.1 Nonrheumatic mitral (valve) prolapse; J45.909 Unspecified asthma, uncomplicated; Z87.11 Personal history of peptic ulcer disease; F11.20 Opioid dependence, uncomplicated; G89.29 Other chronic pain
CPT/HCPCS: 99283

== ENCOUNTER 2016-10-23 18:12 | Emergency (ER) | payer MEDICARE, OTHER ==
[~2016-10-23] VITALS: Ht 167.6 cm; Wt 77.1 kg
[~2016-10-23 18:12] MED LIST changes: +TYLENOL EXTRA500 MG ORAL
[2016-10-23] MEDS ORDERED: PROPRANOLOL HCL40 MG ORAL (18:26)
[2016-10-23] MEDS ORDERED: ATIVAN1 MG ORAL (18:26)
[2016-10-23] MEDS ORDERED: NORCO 10-325 T1 EACH ORAL (18:26)
[2016-10-23] MEDS ORDERED: NAPROXEN500 M1 ORAL (19:14)
[2016-10-23] MEDS ORDERED: ROBAXIN-750750 MG PO (19:14)
[2016-10-23 19:15] VITALS: BP 142/88
[2016-10-23] MEDS ORDERED: Norco 10mg/325mg tab ORAL ONE (19:15)
--- NOTE | 2016-10-23 19:15 | Emergency Room Report ---
History of Present Illness General Chief Complaint: General Complaint Source: Patient Present Illness HPI 51 y/o female c/o multiple complaints. States she has mitral valve prolapse hx and has been having intermittent palpitations. Was worked up in the past by title agent and told she was ok. States she is currently asymptomatic but would like an EKG to make sure everything is ok. Denies any CP, SOB, HERRERA, nausea or chest pressure. Patient also states she has been having withdrawal sxs from norco and ativan. States she has been taking it for 2 months for chronic pain and missed her appt with PCP for med refill. States she will follow up tomorrow for management and is asking for Rx for robaxin which she used to take in the past for her sxs. Denies any lower extremity weakness, incontinence, foot drop, saddle anethesia, numbness, or paralysis. Allergies: Coded Allergies: ASPIRIN (Verified Allergy, Intermediate, disorientation, 08/07/12) NSAIDS (NON-STEROIDAL ANTI-INFLAMMA (Verified Adverse Reaction, Intermediate, GI UPSET, 01/18/12) Uncoded Allergies: NSAID (Allergy, Unknown, 08/08/16) Patient History Past Medical History: see triage record Past Surgical History: none Pertinent Family History: none Now: No Reviewed Nursing Documentation: PMH: Agreed, PSxH: Agreed Nursing Documentation-PMH Hx Cardiac Problems: Yes - MVP; neuropathy, sciatica, degenerative disc disease , spinal stenosis Hx Asthma: Yes Hx Gastrointestinal Problems: Yes - Peptic ulcer Review of Systems All Other Systems: negative except mentioned in HPI Physical Exam Vital Signs Date Time Temp Pulse Resp B/P Pulse Ox O2 Delivery O2 Flow Rate FiO2 10/23/16 18:19 98.2 94 16 142/88 98 Room Air Sp02 EP Interpretation: reviewed, normal Head: normocephalic, atraumatic Eyes: bilateral eye PERRL, bilateral eye normal inspection Neck: full range of motion, supple/symm/no masses Respiratory: chest non-tender, lungs clear, normal breath sounds, speaking full sentences Cardiovascular #1: regular rate, rhythm, no edema Genitourinary: normal inspection, no CVA tenderness Musculoskeletal: back normal, gait/station normal, normal range of motion, non- tender Neurologic: alert, oriented x3, responsive, motor strength/tone normal, sensory intact, speech normal Psychiatric: mood/affect normal Skin: normal color, no rash, warm/dry, well hydrated Medical Decision Making PA Attestation Dr. Mcadams is my supervising physician with whom patient management has been discussed with. Diagnostic Impression: Primary Impression: Chronic pain Additional Impressions: Lumbago with sciatica Qualified Codes: M54.42 - Lumbago with sciatica, left side; G89.29 - Other chronic pain Chronic, continuous use of opioids Mitral valve prolapse ER Course Pt. presents to the ED c/o chronic pain / med refill. Ddx considered but are not limited to sciatica, DDD, spinal stenosis, CVA, AMI, MVP, A. Flutter, A. Fib, SVT Vital signs: are WNL, pt. is afebrile H&PE are most consistent with Mitral Valve Prolapse per patient and sciatica ORDERS / ED INTERVENTIONS: EKG My Orders - SABRY,TAMEEM P.A. Procedure Category Date Status Time Hydrocodone/Acetamin PHA 10/23/16 Complete ([place] 19:15 DISCHARGE: At this time pt. is stable for d/c to home. Will provide printed patient care instructions, and any necessary prescriptions. Care plan and follow up instructions have been discussed with the patient prior to discharge. EKG Diagnostic Results EKG Time: 19:00 Rate: normal Rhythm: NSR ST Segments: no acute changes ASA given to the pt in ED: No Last Vital Signs Date Time Temp Pulse Resp B/P Pulse Ox O2 Delivery O2 Flow Rate FiO2 10/23/16 18:19 98.2 94 16 142/88 98 Room Air Status: unchanged Disposition: HOME, SELF-CARE Condition: Stable Scripts Methocarbamol* (ROBAXIN-750*) 750 Mg Tablet 750 MG PO TID, #30 TAB 0 Refills Prov: SABRY,TAMEEM P.A. 10/23/16 Naproxen* (NAPROXEN*) 500 Mg Tablet.dr 500 MG ORAL TWICE A DAY for 10 Days, #20 TAB Prov: SABRY,TAMEEM P.A. 10/23/16 Patient Instructions: Mitral Valve Prolapse, Opioid Withdrawal, Sciatica With Rehab-SportsMed Additional Instructions: Advised patient to take needed. Advised patient that muscle relaxers causes drowsiness and to not take it if they plan on leaving the house or operating heavy machinery. Patient education on Alexey method back exercises for radiculopathy and given hand out with stretches detailed. Advised patient to sleep with pillow behind leg if laying supine or between the knees if laying on their side. Advised patient to wear proper footwear with good insoles in addition to good ergonomics while at home and at work. Patient encouraged for weight loss through diet and exercise to help prevent recurrence of future back pain. Advised patient to go to the ER immediately if she experiences any new LE numbness, weakness, irretractible back pain, or if any paralysis, urinary, or bowel incontinence begins. LOURDES COLEY Oct 23, 2016 19:15
== END 2016-10-23 19:30 | disposition home or self-care (01) ==
LOC: EMR 18:47
DX: G89.29 Other chronic pain (principal); M54.40 Lumbago with sciatica, unspecified side; I34.1 Nonrheumatic mitral (valve) prolapse; Z79.891 Long term (current) use of opiate analgesic; J45.909 Unspecified asthma, uncomplicated
CPT/HCPCS: 99284

== ENCOUNTER 2016-10-30 21:09 | Emergency (ER) | payer MEDICARE, OTHER ==
[~2016-10-30] VITALS: Ht 167.6 cm; Wt 74.8 kg
[~2016-10-30 21:09] MED LIST changes: +NAPROXEN500 M1 ORAL; +NORCO 10-325 T1 EACH ORAL
[2016-10-30 21:20] VITALS: BP 145/98
[2016-10-30] MEDS ORDERED: ALBUTEROL2.5 MG/3 M INH (21:22)
[2016-10-30] MEDS ORDERED: CLARITIN5 MG ORAL (21:22)
[2016-10-30] MEDS ORDERED: LORazepam 1mg tab ORAL ONE (21:45)
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
[2016-10-30 22:25] VITALS: BP 144/91
== END 2016-10-30 22:25 | disposition home or self-care (01) ==
LOC: EMR 21:35
DX: M25.519 Pain in unspecified shoulder (principal); M62.838 Other muscle spasm; Z76.0 Encounter for issue of repeat prescription; F13.10 Sedative, hypnotic or anxiolytic abuse, uncomplicated; Z87.11 Personal history of peptic ulcer disease; J45.909 Unspecified asthma, uncomplicated; G62.9 Polyneuropathy, unspecified; F17.200 Nicotine dependence, unspecified, uncomplicated; Z88.6 Allergy status to analgesic agent
CPT/HCPCS: 99282

== ENCOUNTER 2016-11-23 23:11 | Emergency (ER) | payer MEDICARE, OTHER ==
[~2016-11-23 23:11] MED LIST changes: +ALBUTEROL2.5 MG/3 M INH; +CLARITIN5 MG ORAL
== END 2016-11-23 23:37 | disposition left against medical advice (07) ==
LOC: EMR 23:37
DX: Z76.0 Encounter for issue of repeat prescription (principal); Z53.21 Procedure and treatment not carried out due to patient leaving prior to being seen by health care provider

== ENCOUNTER 2016-12-03 16:21 | Emergency (ER) | payer MEDICARE, OTHER ==
[~2016-12-03] VITALS: Ht 167.6 cm; Wt 74.8 kg
[2016-12-03 16:28] VITALS: BP 142/82
[2016-12-03] MEDS ORDERED: AMOXICILLIN500 MG ORAL (17:00)
[2016-12-03 17:15] VITALS: BP 142/82
--- NOTE | 2016-12-03 22:24 | Emergency Room Report ---
History of Present Illness General Chief Complaint: Toothache Source: Patient Present Illness HPI The patient is a 51-year-old female presenting for tooth pain. She states that this began 2 days prior. Pain is a 10 out of 10 dull ache and does not radiate from the mid bottom teeth. Worse with chewing. She states that she has an appointment to see her dentist tomorrow. She also states that her primary doctor has given her a prescription for Percocet but she needs to pickle sorter the prescription in the morning. She denies other symptoms including fever, chills , headache, sore throat, chest pain, shortness of breath Allergies: Coded Allergies: ASPIRIN (Verified Allergy, Intermediate, disorientation, 08/07/12) NSAIDS (NON-STEROIDAL ANTI-INFLAMMA (Verified Adverse Reaction, Intermediate, GI UPSET, 01/18/12) Uncoded Allergies: NSAID (Allergy, Unknown, 08/08/16) Patient History Past Medical History: see triage record Pertinent Family History: none Last Menstrual Period: Post Reviewed Nursing Documentation: PMH: Agreed, PSxH: Agreed Nursing Documentation-PMH Hx Cardiac Problems: Yes - Mitral Valve Prolapse Hx Asthma: Yes - Emphysema Hx Gastrointestinal Problems: Yes - Peptic ulcer Review of Systems All Other Systems: negative except mentioned in HPI Physical Exam Vital Signs Date Time Temp Pulse Resp B/P (MAP) Pulse Ox O2 Delivery O2 Flow Rate FiO2 12/03/16 16:28 98.4 101 20 142/82 97 Room Air Sp02 EP Interpretation: reviewed, normal General Appearance: no apparent distress, alert, GCS 15, non-toxic Head: normocephalic, atraumatic Eyes: bilateral eye normal inspection, bilateral eye PERRL ENT: hearing grossly normal, normal pharynx, no angioedema, normal voice, uvula midline, other - poor dentition with decay to lower anterior teeth. Surrounding erythema. Neck: full range of motion, supple/symm/no masses Musculoskeletal: back normal, gait/station normal, normal range of motion, non- tender Neurologic: alert, oriented x3, responsive, motor strength/tone normal, sensory intact, speech normal Psychiatric: judgement/insight normal, memory normal, mood/affect normal, no suicidal/homicidal ideation Skin: normal color, no rash, warm/dry, well hydrated Lymphatic: no adenopathy Medical Decision Making PA Attestation Dr. Castellanos is my supervising physician. Patient management was discussed with my supervising physician Diagnostic Impression: Primary Impression: Dental infection Additional Impression: Toothache ER Course The patient is a 51-year-old female presenting for toothache Diagnoses considered but not limited to: Dental loly, dental abscess, toothache , gingivitis, pain medication seeking behavior, among others Physical exam: afebrile. No apparent distress There is poor dentition throughout. Tenderness to palpation over the lower left incisor. Surrounding erythema. No fluctuance The patient will be treated with antibiotics for infection. She is persistent and cheeks requesting narcotic pain medication. Cures report shows frequent prescriptions for narcotics. I offered Motrin and Tylenol for the patient which she refused and became angry. She'll be discharged home and is to follow up with dentist. ER precautions are given Last Vital Signs Date Time Temp Pulse Resp B/P (MAP) Pulse Ox O2 Delivery O2 Flow Rate FiO2 12/03/16 17:15 98.4 101 20 142/82 97 Room Air Status: improved Disposition: HOME, SELF-CARE Condition: Improved Scripts Amoxicillin* (AMOXIL*) 500 Mg Capsule 500 MG ORAL Q12HR, #20 CAP Prov: ARNOLD BENNETT 12/03/16 Referrals: NON PHYSICIAN (PCP) Patient Instructions: Dental Pain Additional Instructions: I discussed my findings with the patient. All questions and concerns have been answered. Treatment and medication compliance have been addressed. I advised the patient that they need to follow up with PMD in 3-5 days. Return to ED if symptoms worsen, new symptoms arise, or if needed for any reason. Patient verbalized understanding of discharge instructions. The patient will follow up with dentist as soon as possible ARNOLD BENNETT Dec 03, 2016 22:24
== END 2016-12-03 18:10 | disposition home or self-care (01) ==
LOC: EMR 17:18
DX: K04.7 Periapical abscess without sinus (principal); K08.89 Other specified disorders of teeth and supporting structures; Z88.6 Allergy status to analgesic agent
CPT/HCPCS: 99283

== ENCOUNTER 2016-12-24 13:34 | Emergency (ER) | payer MEDICARE, OTHER ==
[~2016-12-24] VITALS: Ht 167.6 cm; Wt 74.8 kg
[2016-12-24] MEDS ORDERED: TYLENOL EXTRA500 MG ORAL (14:20)
[2016-12-24 14:28] VITALS: BP 1/1
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
== END 2016-12-24 14:28 | disposition home or self-care (01) ==
LOC: EMR 14:11
DX: M54.9 Dorsalgia, unspecified (principal); G89.29 Other chronic pain; J45.909 Unspecified asthma, uncomplicated
CPT/HCPCS: 99283

== ENCOUNTER 2017-02-20 12:22 | Emergency (ER) | payer MEDICARE, OTHER ==
[~2017-02-20] VITALS: Ht 167.6 cm; Wt 74.8 kg
[2017-02-20] MEDS ORDERED: ROBAXIN-750750 MG PO (12:45)
[2017-02-20] MEDS ORDERED: TRAMADOL HCL50 MG ORAL (12:45)
[2017-02-20] MEDS ORDERED: CLINDAMYCIN HC300 MG ORAL (12:45)
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
[2017-02-20 13:05] VITALS: BP 118/83
== END 2017-02-20 13:15 | disposition home or self-care (01) ==
LOC: EMR 13:15
DX: L03.114 Cellulitis of left upper limb (principal); L03.113 Cellulitis of right upper limb; M54.30 Sciatica, unspecified side; M54.9 Dorsalgia, unspecified; G89.29 Other chronic pain; J45.909 Unspecified asthma, uncomplicated
CPT/HCPCS: 99284

== ENCOUNTER 2017-02-21 12:43 | Emergency (ER) | payer MEDICARE, OTHER ==
[~2017-02-21] VITALS: Ht 167.6 cm; Wt 74.8 kg
[~2017-02-21 12:43] MED LIST changes: +CLINDAMYCIN HC300 MG ORAL
[2017-02-21 13:02] VITALS: BP 131/90
[2017-02-21] MEDS ORDERED: Norco 7.5mg/325mg tab ORAL ONE (14:30)
[2017-02-21 15:40] VITALS: BP 142/68
--- NOTE | 2017-02-21 15:40 | Emergency Room Report ---
History of Present Illness General Chief Complaint: Pain Source: Patient, Medical Record Present Illness HPI The patient is a 51-year-old female presenting for possible skin infection. She was seen in this emergency Department yesterday for the same complaints. She was given prescription for pain medication and clindamycin. She states that she has had lesions on her skin for the past 2 months and has seen a pan devulcanizer helper who states this may be lupus. She then saw her primary doctor who stated this may be impetigo. She tried mupirocin which did not help. Pain is a 10 out of 10 dull ache to the skin lesions. Does not radiate. She denies other symptoms including nausea, vomiting, fever, chills Allergies: Coded Allergies: ASPIRIN (Verified Allergy, Intermediate, disorientation, 08/07/12) NSAIDS (NON-STEROIDAL ANTI-INFLAMMA (Verified Adverse Reaction, Intermediate, GI UPSET, 01/18/12) Uncoded Allergies: NSAID (Allergy, Unknown, 08/08/16) Patient History Past Medical History: see triage record Pertinent Family History: none Reviewed Nursing Documentation: PMH: Agreed, PSxH: Agreed Nursing Documentation-PMH Hx Cardiac Problems: Yes - Mitral Valve Prolapse Hx Asthma: Yes Hx Gastrointestinal Problems: Yes - Peptic ulcer Review of Systems All Other Systems: negative except mentioned in HPI Physical Exam Vital Signs Date Time Temp Pulse Resp B/P (MAP) Pulse Ox O2 Delivery O2 Flow Rate FiO2 02/21/17 13:02 97.9 76 16 131/90 98 Room Air Sp02 EP Interpretation: reviewed, normal General Appearance: no apparent distress, alert, GCS 15, non-toxic Head: normocephalic, atraumatic Eyes: bilateral eye normal inspection, bilateral eye PERRL ENT: hearing grossly normal, normal pharynx, no angioedema, normal voice Musculoskeletal: back normal, gait/station normal, normal range of motion, non- tender Neurologic: alert, oriented x3, responsive, motor strength/tone normal, sensory intact, speech normal Psychiatric: judgement/insight normal, memory normal, mood/affect normal, no suicidal/homicidal ideation Skin: rash - Circular, crusted lesion of the left hand dorsal aspect. Tender to palpation. No discharge. Lymphatic: no adenopathy Medical Decision Making PA Attestation Dr. Roman is my supervising physician. Patient management was discussed with my supervising physician Diagnostic Impression: Primary Impression: Cellulitis Qualified Codes: L03.114 - Cellulitis of left upper limb ER Course The patient is a 51-year-old female presenting for possible skin infection. Ddx considered include but not limited to insect bite, contact dermatitis, eczema, cellulitis, impetigo, syphilis, among others PE: Afebrile. NAD Skin: Circular, crusted lesion of the left hand dorsal aspect. Tender to palpation. No discharge. SILT. Full AROM intact. No surrounding erythema. The patient is given pain medication in the emergency department and will be discharged home. She will continue to take the clindamycin as prescribed. She will follow up with dermatology as soon as possible for further evaluation. ER precautions given Last Vital Signs Date Time Temp Pulse Resp B/P (MAP) Pulse Ox O2 Delivery O2 Flow Rate FiO2 02/21/17 13:02 97.9 76 16 131/90 98 Room Air Status: improved Disposition: HOME, SELF-CARE Condition: Improved Referrals: [facility] [place] (PCP) Patient Instructions: Cellulitis Additional Instructions: I discussed my findings with the patient. All questions and concerns have been answered. Treatment and medication compliance have been addressed. Return to ED if symptoms worsen, new symptoms arise, or if needed for any reason. Patient verbalized understanding of discharge instructions. Please continue to take the antibiotics as were prescribed to yesterday. Please follow up with her primary doctor as we discussed. ARNOLD BENNETT Feb 21, 2017 15:40
== END 2017-02-21 15:40 | disposition home or self-care (01) ==
LOC: EMR 13:33
DX: L03.114 Cellulitis of left upper limb (principal); Z88.6 Allergy status to analgesic agent
CPT/HCPCS: 99283

== ENCOUNTER 2017-02-28 14:26 | Emergency (ER) | payer MEDICARE, OTHER ==
[~2017-02-28] VITALS: Ht 167.6 cm; Wt 74.8 kg
[2017-02-28 14:39] VITALS: BP 145/80
[2017-02-28] MEDS ORDERED: Norco 7.5mg/325mg tab ORAL ONE (15:15)
[2017-02-28] MEDS ORDERED: TRAMADOL HCL50 MG ORAL (15:33)
[2017-02-28 15:48] VITALS: BP 148/81
--- NOTE | 2017-03-02 16:01 | Emergency Room Report ---
History of Present Illness General Chief Complaint: Medication Refill Source: Patient Present Illness HPI Patient is a 51-year-old female well-known to this emergency Department presenting for refill of [place] and Ativan. She states that her primary doctor sent her over as he was unable to see her in his office. She states that she takes these medications together for back pain with spasm. Pain is a 10 out of 10 radiates from the left back down the left leg. She denies any recent injury to this area. She states that she ran out of the medications yesterday. She has been using Robaxin and MOBIC which has not been helping. She denies any other symptoms including N, V, F, chills, urinary incontinence, abd pain Allergies: Coded Allergies: ASPIRIN (Verified Allergy, Intermediate, disorientation, 08/07/12) NSAIDS (NON-STEROIDAL ANTI-INFLAMMA (Verified Adverse Reaction, Intermediate, GI UPSET, 01/18/12) Patient History Past Medical History: see triage record Pertinent Family History: none Reviewed Nursing Documentation: PMH: Agreed, PSxH: Agreed Nursing Documentation-PMH Hx Cardiac Problems: Yes - Mitral Valve Prolapse Hx Asthma: Yes Hx Gastrointestinal Problems: Yes - Peptic ulcer Review of Systems All Other Systems: negative except mentioned in HPI Physical Exam Vital Signs Date Time Temp Pulse Resp B/P (MAP) Pulse Ox O2 Delivery O2 Flow Rate FiO2 02/28/17 14:32 97.9 86 14 138/77 96 Room Air Sp02 EP Interpretation: reviewed, normal General Appearance: no apparent distress, alert, GCS 15, non-toxic Head: normocephalic, atraumatic Eyes: bilateral eye normal inspection, bilateral eye PERRL ENT: hearing grossly normal, normal pharynx, no angioedema, normal voice Neck: full range of motion, supple/symm/no masses Musculoskeletal: back normal, gait/station normal, normal range of motion, tender - TTP to L lumbar paraspinal muscles Neurologic: alert, oriented x3, responsive, motor strength/tone normal, sensory intact, speech normal Psychiatric: judgement/insight normal, memory normal, mood/affect normal, no suicidal/homicidal ideation Skin: normal color, no rash, warm/dry, well hydrated Medical Decision Making PA Attestation Dr. Mckeon is my supervising physician. Patient management was discussed with my supervising physician Diagnostic Impression: Primary Impression: Chronic pain Qualified Codes: G89.29 - Other chronic pain ER Course Patient is a 51-year-old female well-known to this emergency Department presenting for refill of [place] and Ativan. Ddx considered include but not limited to lumbar strain, degenerative disease, cauda equina syndrome, chronic pain, narcotic dependency. PE: Afebrile. NAD TTP over the L lumbar paraspinal muscles. No midline TTP. Normal gait CURES shows Last narcotic prescription was 2 weeks prior for a three-day supply The patient is given limited prescription for tramadol needs to followup with her primary doctor for further management of pain ER precautions given Last Vital Signs Date Time Temp Pulse Resp B/P (MAP) Pulse Ox O2 Delivery O2 Flow Rate FiO2 02/28/17 15:48 93 18 148/81 95 02/28/17 14:39 98.0 Room Air Status: improved Disposition: HOME, SELF-CARE Condition: Improved Scripts Tramadol Hcl* (ULTRAM*) 50 Mg Tablet 50 MG ORAL Q6H Y for For Pain, #10 TAB 0 Refills Prov: ARNOLD BENNETT 02/28/17 Referrals: NOT CHOSEN [facility]/,REFERRING (PCP) Patient Instructions: Medicine Refill at the Emergency Department, Chronic Pain Additional Instructions: I discussed my findings with the patient. All questions and concerns have been answered. Treatment and medication compliance have been addressed. I advised the patient that they need to follow up with PMD in 3-5 days. Return to ED if symptoms worsen, new symptoms arise, or if needed for any reason. Patient verbalized understanding of discharge instructions. ARNOLD BENNETT Mar 02, 2017 16:01
== END 2017-02-28 15:58 | disposition home or self-care (01) ==
LOC: EMR 15:33
DX: G89.29 Other chronic pain (principal); Z76.0 Encounter for issue of repeat prescription; M54.9 Dorsalgia, unspecified; J45.909 Unspecified asthma, uncomplicated; Z88.6 Allergy status to analgesic agent
CPT/HCPCS: 99282

== ENCOUNTER 2017-03-01 19:21 | Emergency (ER) | payer MEDICARE, OTHER ==
[~2017-03-01] VITALS: Ht 167.6 cm; Wt 74.8 kg
[2017-03-01] MEDS ORDERED: Norco 5mg/325mg tab ORAL ONE (20:00)
[2017-03-01 20:26] VITALS: BP 122/71
--- NOTE | 2017-03-01 21:38 | Emergency Room Report ---
History of Present Illness General Chief Complaint: Lower Extremity Injury Source: Patient Present Illness [facility] The patient is a 51-year-old female presenting for leg pain. She states that she was walking, slipped, and felt the right leg strain. She did not fall. Pain is now a 10 out of 10 throbbing sensation to the right side. Worse with movement. She denies previous injury to this area. She has taken Robaxin and MOBIC at home which minimally helps. She denies any other symptoms Allergies: Coded Allergies: ASPIRIN (Verified Allergy, Intermediate, disorientation, 08/07/12) NSAIDS (NON-STEROIDAL ANTI-INFLAMMA (Verified Adverse Reaction, Intermediate, GI UPSET, 01/18/12) Patient History Past Medical History: see triage record Pertinent Family History: none Now: No Reviewed Nursing Documentation: PMH: Agreed, PSxH: Agreed Nursing Documentation-PMH Past Medical History: No History, Except For Hx Cardiac Problems: Yes - Mitral Valve Prolapse Hx Asthma: Yes Hx Gastrointestinal Problems: Yes - Peptic ulcer Review of Systems All Other Systems: negative except mentioned in HPI Physical Exam Vital Signs Date Time Temp Pulse Resp B/P (MAP) Pulse Ox O2 Delivery O2 Flow Rate FiO2 03/01/17 19:24 98.1 91 16 122/71 99 Room Air Sp02 EP Interpretation: reviewed, normal General Appearance: no apparent distress, alert, GCS 15, non-toxic Head: normocephalic, atraumatic Eyes: bilateral eye normal inspection, bilateral eye PERRL ENT: hearing grossly normal, normal pharynx, no angioedema, normal voice Respiratory: chest non-tender, lungs clear, normal breath sounds, speaking full sentences Musculoskeletal: normal inspection, normal range of motion, tender - R lateral thigh Neurologic: alert, oriented x3, responsive, motor strength/tone normal, sensory intact, speech normal Psychiatric: judgement/insight normal, memory normal, mood/affect normal, no suicidal/homicidal ideation Skin: normal color, no rash, warm/dry, well hydrated Medical Decision Making PA Attestation Dr. Mckeon is my supervising physician. Patient management was discussed with my supervising physician Diagnostic Impression: Primary Impression: Muscle strain ER Course The patient is a 51-year-old female presenting for leg pain. Ddx considered include but not limited to sprain/strain, fracture, contusion, drug seeking behavior PE: NAD There is tenderness to palpation over the right lateral and posterior thigh. No skin changes. No ecchymosis or edema. Full active range of motion is intact. The patient is given 1 [place] in the emergency department and will be discharged home. She was seen in this emergency department yesterday and received tramadol as a prescription. She needs to followup with her primary doctor ER precautions given Last Vital Signs Date Time Temp Pulse Resp B/P (MAP) Pulse Ox O2 Delivery O2 Flow Rate FiO2 03/01/17 20:26 98.1 16 122/71 99 Room Air 03/01/17 19:24 91 Status: improved Disposition: HOME, SELF-CARE Condition: Improved Referrals: NON PHYSICIAN (PCP) Patient Instructions: Muscle Strain Additional Instructions: I discussed my findings with the patient. All questions and concerns have been answered. Treatment and medication compliance have been addressed. I advised the patient that they need to follow up with Primary doctor within 3 days. Return to ED if symptoms worsen, new symptoms arise, or if needed for any reason. Patient verbalized understanding of discharge instructions. ARNOLD BENNETT Mar 01, 2017 21:38
== END 2017-03-01 20:32 | disposition home or self-care (01) ==
LOC: EMR 19:35
DX: S76.811A Strain of other specified muscles, fascia and tendons at thigh level, right thigh, initial encounter (principal); W01.0XXA Fall on same level from slipping, tripping and stumbling without subsequent striking against object, initial encounter; Y92.89 Other specified places as the place of occurrence of the external cause; Z88.6 Allergy status to analgesic agent; J45.909 Unspecified asthma, uncomplicated
CPT/HCPCS: 99283

== ENCOUNTER 2017-04-29 10:30 | Emergency (ER) | payer MEDICARE, OTHER ==
[~2017-04-29] VITALS: Ht 167.6 cm; Wt 81.6 kg
[2017-04-29 10:52] VITALS: BP 130/87
--- NOTE | 2017-04-29 11:29 | Emergency Room Report ---
History of Present Illness General Chief Complaint: Back Pain-No Injury Source: Patient Present Illness HPI Patient presents with worsened back pain. Recent eval by Ortho (Gurjit Powers). Pain 10/10, lower back and neck. No recent injury. No fevers. Nausea and increased anxiety. Ambulatory without weakness or numbness. No saddle numbness or incontinence. Has norco at home which has not helped. 10/ pain, constant Appointment with Orth Wed for steroid injection. Requesting help with pain control. No SI or HI. No dysuria, bleeding, rashes. Allergies: Coded Allergies: ASPIRIN (Verified Allergy, Intermediate, disorientation, 08/07/12) NSAIDS (NON-STEROIDAL ANTI-INFLAMMA (Verified Adverse Reaction, Intermediate, GI UPSET, 01/18/12) Patient History Past Medical History: see triage record Social History: Reports: smoking Social History Narrative at home Now: No Reviewed Nursing Documentation: PMH: Agreed, PSxH: Agreed Nursing Documentation-PMH Past Medical History: No History, Except For Hx Cardiac Problems: Yes - Mitral Valve Prolapse Hx Asthma: Yes Hx Gastrointestinal Problems: Yes - Peptic ulcer Review of Systems All Other Systems: negative except mentioned in HPI Physical Exam Vital Signs Date Time Temp Pulse Resp B/P (MAP) Pulse Ox O2 Delivery O2 Flow Rate FiO2 04/29/17 10:46 97.5 108 22 130/87 6 Room Air General Appearance: alert, GCS 15, moderate distress Head: normocephalic, atraumatic Eyes: bilateral eye normal inspection, bilateral eye PERRL ENT: hearing grossly normal, normal voice Neck: full range of motion, supple Respiratory: no respiratory distress, speaking full sentences Cardiovascular #1: regular rate, rhythm, no edema Cardiovascular #2: 2+ radial (L) Gastrointestinal: normal inspection, normal bowel sounds Musculoskeletal: digits/nails normal, no calf tenderness, other - muscle spasm bilat back, no step off Neurologic: alert, motor strength/tone normal, DTRs symmetric, sensory intact, normal gait Psychiatric: anxious - and tearful Skin: no rash Medical Decision Making Diagnostic Impression: Primary Impression: Exacerbation of chronic back pain ER Course Patient with increased back pain with muscle spasm. Chronic pain which is worsened. Treated with PO meds. No red flag symptoms or signs. Patient arranged for ride. Shot for pain given. Improved after shot. Patient stable for outpatient observation and treatment. Last Vital Signs Date Time Temp Pulse Resp B/P (MAP) Pulse Ox O2 Delivery O2 Flow Rate FiO2 04/29/17 17:11 97.5 04/29/17 12:00 22 130/87 6 Room Air 04/29/17 10:46 108 Status: improved Disposition: HOME, SELF-CARE Condition: Improved Ritchie Tellez M.D. Apr 29, 2017 11:29
[2017-04-29] MEDS ORDERED: oxyCODONE HCL/Acetaminophen 5/325mg ORAL ONE (11:30)
[2017-04-29 12:00] VITALS: BP 130/87
[2017-04-29] MEDS ORDERED: Morphine Sulfate 4mg/ml Inj IM ONE (12:30)
== END 2017-04-29 12:00 | disposition home or self-care (01) ==
LOC: EMR 11:25
DX: G89.29 Other chronic pain (principal); M54.5 Low back pain; M54.2 Cervicalgia; J45.909 Unspecified asthma, uncomplicated; Z87.11 Personal history of peptic ulcer disease; Z88.6 Allergy status to analgesic agent
CPT/HCPCS: 96372; 99284; J2270; J2550

== ENCOUNTER 2017-05-04 13:45 | Emergency (ER) | payer MEDICARE, OTHER ==
[~2017-05-04] VITALS: Ht 167.6 cm; Wt 83.9 kg
[2017-05-04 14:30] VITALS: BP 124/91
[2017-05-04 14:31] VITALS: BP 124/91
[2017-05-04] MEDS ORDERED: AMOXICILLIN875 MG PO (14:32)
[2017-05-04] MEDS ORDERED: FLONASE ALLERG9.9 ML NS (14:32)
[2017-05-04] MEDS ORDERED: PSEUDOEPHEDRINE30 MG PO (14:32)
--- NOTE | 2017-05-04 14:38 | Emergency Room Report ---
History of Present Illness General Chief Complaint: Upper Respiratory Illness Source: Patient Present Illness HPI 51YOF walk in with 2-3 days sinus congestion, R>L earache, coughing up green phlegm, sore throat + smoker No OTC meds Denies SOB, chest pain, sick contacts Denies fever/chills, myalgias Allergies: Coded Allergies: ASPIRIN (Verified Allergy, Intermediate, disorientation, 08/07/12) NSAIDS (NON-STEROIDAL ANTI-INFLAMMA (Verified Adverse Reaction, Intermediate, GI UPSET, 01/18/12) Patient History Past Medical History: see triage record, old chart reviewed Past Surgical History: none Pertinent Family History: none Social History: Reports: smoking Now: No Immunizations: UTD Reviewed Nursing Documentation: PMH: Agreed, PSxH: Agreed Nursing Documentation-PMH Hx Cardiac Problems: Yes - Mitral Valve Prolapse Hx Asthma: Yes Hx Gastrointestinal Problems: Yes - Peptic ulcer Review of Systems All Other Systems: negative except mentioned in HPI Physical Exam Vital Signs Date Time Temp Pulse Resp B/P (MAP) Pulse Ox O2 Delivery O2 Flow Rate FiO2 05/04/17 14:20 98.8 97 18 124/91 95 Room Air Sp02 EP Interpretation: reviewed, normal General Appearance: normal inspection, well appearing, no apparent distress, alert, GCS 15, non-toxic Head: normocephalic, atraumatic Eyes: bilateral eye PERRL, bilateral eye EOMI ENT: normal ENT inspection, hearing grossly normal, normal pharynx, no angioedema, normal voice, uvula midline, moist mucus membranes, other - R>L TM injected, erythematous. No perforation, or pus Neck: normal inspection, full range of motion, supple, thyroid normal, no meningismus, no bony tend Respiratory: normal inspection, lungs clear, normal breath sounds, no rhonchi, no respiratory distress, no retraction, no accessory muscle use, no wheezing, speaking full sentences Cardiovascular #1: regular rate, rhythm, no edema, no JVD, normal capillary refill Gastrointestinal: normal inspection, normal bowel sounds, non tender, soft, no mass, no peritonitis, non-distended, no guarding, no hernia, no pulsatile mass Genitourinary: no CVA tenderness Musculoskeletal: normal inspection, back normal, normal range of motion, no calf tenderness, pelvis stable, Christy's Sign negative Neurologic: normal inspection, alert, oriented x3, responsive, brass roller III-XII nml as tested, motor strength/tone normal, cerebellar normal, normal gait, speech normal Psychiatric: normal inspection, judgement/insight normal, mood/affect normal, no suicidal/homicidal ideation, no delusions Skin: normal inspection, normal color, no rash Lymphatic: normal inspection, no adenopathy Medical Decision Making Diagnostic Impression: Primary Impression: Sinusitis Qualified Codes: J01.90 - Acute sinusitis, unspecified Additional Impression: Otitis media Qualified Codes: H66.003 - Acute suppurative otitis media without spontaneous rupture of ear drum, bilateral ER Course Sinus congestion, bilateral R>L otitits media VSS, Afebrile Lungs CTAB No sign of strep infection in oropharynx ER course: Patient has remained stable during ED stay. Disposition: Patient is to be discharged to home. Prescriptions given are amox, sudafed, flonase Patient is instructed to follow up with their primary care doctor within 5 days. Strict return precautions discussed with patient such as fever, chills, worsening/severe pain, nausea, vomiting, which may indicate severe illness. Patient verbalizes understanding and agrees with plan. Please note that this Emergency Department Report was dictated using [employer] technology software, occasionally this can lead to erroneous entry secondary to interpretation by the dictation equipment Last Vital Signs Date Time Temp Pulse Resp B/P (MAP) Pulse Ox O2 Delivery O2 Flow Rate FiO2 05/04/17 14:31 98.8 18 124/91 95 Room Air 05/04/17 14:30 97 Status: improved Disposition: HOME, SELF-CARE Condition: Improved Scripts Pseudoephedrine Hcl* (SUDAFED*) 30 Mg Tablet 30 MG PO Q6H for 7 Days, #20 TAB Prov: MILY COLLINS M.D. 05/04/17 Fluticasone Propionate (Flonase Allergy Relief) 9.9 Ml Gilby.susp 9.9 ML NS BID for congestion for 7 Days, #1 UNIT Prov: MILY COLLINS M.D. 05/04/17 Amoxicillin (AMOXICILLIN) 875 Mg Tablet 875 MG PO Q12H for 7 Days, TAB 0 Refills Prov: MILY COLLINS M.D. 05/04/17 Patient Instructions: Sinusitis, Adult, [id number] MILY COLLINS M.D. May 04, 2017 14:38
== END 2017-05-04 14:37 | disposition home or self-care (01) ==
LOC: EMR 14:30
DX: J32.9 Chronic sinusitis, unspecified (principal); H66.93 Otitis media, unspecified, bilateral; J45.909 Unspecified asthma, uncomplicated; I34.1 Nonrheumatic mitral (valve) prolapse; F17.200 Nicotine dependence, unspecified, uncomplicated; Z88.6 Allergy status to analgesic agent
CPT/HCPCS: 99284

== ENCOUNTER 2017-06-15 11:45 | Emergency (ER) | payer MEDICARE, OTHER ==
[~2017-06-15] VITALS: Ht 167.6 cm; Wt 74.8 kg
[~2017-06-15 11:45] MED LIST changes: +AMOXICILLIN875 MG PO; +PSEUDOEPHEDRINE30 MG PO
[2017-06-15 12:06] VITALS: BP 131/94
[2017-06-15] MEDS ORDERED: traMADol 50mg tab ORAL ONE (12:45)
[2017-06-15 12:46] VITALS: BP 113/77
--- NOTE | 2017-06-15 12:48 | Emergency Room Report ---
History of Present Illness General Chief Complaint: Lower Back Pain or Injury Source: Patient Present Illness HPI The patient is a 51-year-old female presenting for back pain. She is well- known to this emergency department for chronic pain. She states that she developed left lower back pain 2 days prior described as 10 out of 10 dull ache. Radiates down the back of the left leg. Worse with movement. States that she is seeing orthopedics and receiving injections. She has been taking Mobic for pain which usually helps but has not been helping. She denies any other symptoms including numbness, tingling, fever, chills Allergies: Coded Allergies: ASPIRIN (Verified Allergy, Intermediate, disorientation, 08/07/12) NSAIDS (NON-STEROIDAL ANTI-INFLAMMA (Verified Adverse Reaction, Intermediate, GI UPSET, 01/18/12) Patient History Past Medical History: see triage record Pertinent Family History: none Last Menstrual Period: 8 years ago Reviewed Nursing Documentation: PMH: Agreed; PSxH: Agreed Nursing Documentation-PMH Past Medical History: No History, Except For Hx Cardiac Problems: Yes - Mitral Valve Prolapse Hx Asthma: Yes Hx Gastrointestinal Problems: Yes - Peptic ulcer Review of Systems All Other Systems: negative except mentioned in HPI Physical Exam Vital Signs Date Time Temp Pulse Resp B/P (MAP) Pulse Ox O2 Delivery O2 Flow Rate FiO2 06/15/17 11:48 98.2 120 18 146/93 96 Room Air 98.2 Sp02 EP Interpretation: reviewed, normal General Appearance: no apparent distress, alert, GCS 15, non-toxic Head: normocephalic, atraumatic Gastrointestinal: normal bowel sounds, non tender, soft, non-distended, no guarding, no rebound Genitourinary: normal inspection, no CVA tenderness Musculoskeletal: normal range of motion, tender - L lumbar paraspinal muscles Neurologic: alert, oriented x3, responsive, motor strength/tone normal, sensory intact, speech normal Psychiatric: judgement/insight normal, memory normal, mood/affect normal, no suicidal/homicidal ideation Skin: normal color, no rash, warm/dry, well hydrated Medical Decision Making PA Attestation Dr. Tellez is my supervising physician. Patient management was discussed with my supervising physician Diagnostic Impression: Primary Impression: Back pain Qualified Codes: M54.5 - Low back pain ER Course The patient is a 51-year-old female presenting for back pain Ddx considered include but not limited to lumbar strain, degenerative disease, epidural abscess, cauda equina, chronic pain, narcotic dependency. Physical exam: Vitals are within normal limits. No apparent distress There is tenderness to palpation over the left lumbar paraspinal muscles. No midline tenderness or step-offs. Full active range of motion of the hip and back are intact. Normal gait Sensation is intact to light touch Patient is given 1 tramadol in the emergency department and will be discharged home. She'll follow-up with her primary doctor and orthopedics. ER precautions are given Last Vital Signs Date Time Temp Pulse Resp B/P (MAP) Pulse Ox O2 Delivery O2 Flow Rate FiO2 06/15/17 12:06 98.5 104 18 131/94 96 Room Air 98.5 Status: improved Disposition: HOME, SELF-CARE Condition: Improved Patient Instructions: Back Pain, Adult Additional Instructions: I discussed my findings with the patient. All questions and concerns have been answered. Treatment and medication compliance have been addressed. I advised the patient that they need to follow up with PMD in 3-5 days. Return to ED if symptoms worsen, new symptoms arise, or if needed for any reason. Patient verbalized understanding of discharge instructions. ARNOLD BENNETT Jun 15, 2017 12:48
== END 2017-06-15 12:45 | disposition home or self-care (01) ==
LOC: EMR 12:42
DX: M54.5 Low back pain (principal); G89.29 Other chronic pain; J45.909 Unspecified asthma, uncomplicated; I34.1 Nonrheumatic mitral (valve) prolapse; Z87.11 Personal history of peptic ulcer disease; Z88.6 Allergy status to analgesic agent
CPT/HCPCS: 99282

== ENCOUNTER 2017-06-24 12:41 | Emergency (ER) | payer MEDICARE, OTHER ==
[~2017-06-24] VITALS: Ht 167.6 cm; Wt 74.8 kg
[2017-06-24] MEDS ORDERED: Pantoprazole Inj IV ONE (13:15)
[2017-06-24 14:04] VITALS: BP 102/76
[2017-06-24 14:20] VITALS: BP 102/76
--- NOTE | 2017-06-24 14:32 | Emergency Room Report ---
History of Present Illness General Chief Complaint: Gastrointestinal Bleed Source: Patient, Medical Record Present Illness HPI 51-year-old female presents ED for evaluation. Patient states she's been having increased bright red blood per rectum since yesterday. Patient says she has history of ulcers and is currently taking Aleve. Patient states she was told not to take Aleve. Denies any pain. Denies any blood thinners. Denies any nausea or vomiting. No other aggravating relieving factors. Denies any other associated symptoms Allergies: Coded Allergies: ASPIRIN (Verified Allergy, Intermediate, disorientation, 08/07/12) NSAIDS (NON-STEROIDAL ANTI-INFLAMMA (Verified Adverse Reaction, Intermediate, GI UPSET, 01/18/12) Patient History Past Medical History: asthma, ulcer Past Surgical History: none Pertinent Family History: none Social History: Denies: smoking, alcohol use, drug use Last Menstrual Period: 8 years ago Now: No Immunizations: UTD Reviewed Nursing Documentation: PMH: Agreed; PSxH: Agreed Nursing Documentation-PMH Past Medical History: No History, Except For Hx Cardiac Problems: Yes - Mitral Valve Prolapse Hx Asthma: Yes Hx Gastrointestinal Problems: Yes - Peptic ulcer Review of Systems All Other Systems: negative except mentioned in HPI Physical Exam Vital Signs Date Time Temp Pulse Resp B/P (MAP) Pulse Ox O2 Delivery O2 Flow Rate FiO2 06/24/17 12:45 98.1 89 16 132/95 95 Room Air 98.1 Sp02 EP Interpretation: reviewed, normal General Appearance: no apparent distress, alert, GCS 15, non-toxic Head: normocephalic, atraumatic Eyes: bilateral eye normal inspection, bilateral eye PERRL ENT: hearing grossly normal, normal pharynx, no angioedema, normal voice Neck: full range of motion, supple/symm/no masses Respiratory: chest non-tender, lungs clear, normal breath sounds, speaking full sentences Cardiovascular #1: regular rate, rhythm, no edema Cardiovascular #2: 2+ carotid (R), 2+ carotid (L), 2+ radial (R), 2+ radial (L) , 2+ dorsalis pedis (R), 2+ dorsalis pedis (L) Gastrointestinal: normal bowel sounds, non tender, soft, non-distended, no guarding, no rebound Rectal: deferred Genitourinary: normal inspection, no CVA tenderness Musculoskeletal: back normal, gait/station normal, normal range of motion, non- tender Neurologic: alert, oriented x3, responsive, motor strength/tone normal, sensory intact, speech normal Psychiatric: judgement/insight normal, memory normal, mood/affect normal, no suicidal/homicidal ideation Reflexes: 3+ bicep (R), 3+ bicep (L), 3+ tricep (R), 3+ tricep (L), 3+ knee (R) , 3+ knee (L) Skin: normal color, no rash, warm/dry, well hydrated Lymphatic: no adenopathy Medical Decision Making Diagnostic Impression: Primary Impression: LGI bleed ER Course Hospital Course 51-year-old F presents to ED with rectal bleeding. h/o ulcers Differential diagnoses include: UGIB, LGIB, hemorrhoids Clinical course Patient placed on stretcher. cafeteria monitor. After initial history and physical I ordered labs, IV fluids, protonix Patient is a difficult IV access. After a few attempts patient states she does not want further intervention. Would like to leave stating that the bleeding has since stopped. Patient states she wishes to go home. Understands the risks of leaving. Patient has competency to make her own decisions I feel this is a highly complex case requiring extensive working including EKG/ Rhythm strip, Xray/CT/US, Blood/urine lab work, repeat exams while in ED, and administration of strong opiates/narcotics for pain control, admission to hospital or close patient follow up. Diagnosis - LGIB patient left ama EKG Diagnostic Results Rate: normal Rhythm: NSR ST Segments: no acute changes ASA given to the pt in ED: No Rhythm Strip Diag. Results EP Interpretation: yes Rhythm: NSR, no PVC's, no ectopy Last Vital Signs Date Time Temp Pulse Resp B/P (MAP) Pulse Ox O2 Delivery O2 Flow Rate FiO2 06/24/17 14:04 88 20 102/76 100 Room Air 06/24/17 12:45 98.1 98.1 Status: unchanged Disposition: AGAINST MEDICAL ADVICE Condition: Stable Solitario Hernandez MD Jun 24, 2017 14:32
[2017-06-24 14:41] LABS: APPEARANCE,URINE CLEAR; BILIRUBIN, URINE NEGATIVE (NEGATIVE); COLOR,URINE PALE YELLOW; GLUCOSE, URINE (UA) NEGATIVE (NEGATIVE); KETONES,URINE NEGATIVE (NEGATIVE); LEUKOCYTE ESTERASE ,URINE 1+ (NEGATIVE); NITRITE,URINE NEGATIVE (NEGATIVE); PH,URINE 7 (4.5-8.0); PROTEIN,URINE NEGATIVE (NEGATIVE); UROBILINOGEN,URINE NORMAL MG/DL (0.0-1.0)
[2017-06-25] MEDS ORDERED: NEURONTIN400 MG ORAL (05:33)
[2017-06-25] MEDS ORDERED: ROBAXIN-750750 MG PO (05:33)
--- NOTE | 2017-06-25 17:44 | Cardiology Report ---
APPROVED REPORT EKG Measurement Heart [id number] Normal sinus rhythm Normal ECG
== END 2017-06-24 14:50 | disposition other institution (70) ==
LOC: EMR 13:23
DX: K92.2 Gastrointestinal hemorrhage, unspecified (principal); J45.909 Unspecified asthma, uncomplicated; Z87.11 Personal history of peptic ulcer disease; Z88.6 Allergy status to analgesic agent
CPT/HCPCS: 81003; 93005; 99283

== ENCOUNTER 2017-06-25 04:35 | Emergency (ER) | payer MEDICARE, OTHER ==
[~2017-06-25] VITALS: Ht 167.6 cm; Wt 74.8 kg
[2017-06-25 04:59] VITALS: BP 128/63
--- NOTE | 2017-06-25 05:09 | Emergency Room Report ---
History of Present Illness General Chief Complaint: Pain Source: Patient Present Illness HPI Patient presents with complaints of left leg pain and cramping Points to the calf area Denies any swelling or redness Denies any fevers or chills Denies any chest pain or pleurisy On review of medical records appears the patient was here yesterday Was requested for admission of GI bleed After asking the patient further she reports that she had taken some Motrin which she thinks likely caused bleeding however has stopped and the ER was busy so she did not want to wait Denies any further rectal bleeding Allergies: Coded Allergies: ASPIRIN (Verified Allergy, Intermediate, disorientation, 08/07/12) NSAIDS (NON-STEROIDAL ANTI-INFLAMMA (Verified Adverse Reaction, Intermediate, GI UPSET, 01/18/12) Patient History Past Medical History: see triage record Pertinent Family History: none Reviewed Nursing Documentation: PMH: Agreed; PSxH: Agreed Nursing Documentation-PMH Hx Cardiac Problems: Yes - Mitral Valve Prolapse Hx Asthma: Yes Hx Gastrointestinal Problems: Yes - Peptic ulcer Review of Systems All Other Systems: negative except mentioned in HPI Physical Exam Vital Signs Date Time Temp Pulse Resp B/P (MAP) Pulse Ox O2 Delivery O2 Flow Rate FiO2 06/25/17 04:43 97.9 96 16 135/87 95 Room Air 97.9 Sp02 EP Interpretation: reviewed, normal General Appearance: no apparent distress Head: normocephalic, atraumatic Eyes: bilateral eye PERRL, bilateral eye EOMI ENT: normal pharynx Neck: supple Respiratory: lungs clear, normal breath sounds Cardiovascular #1: regular rate, rhythm Gastrointestinal: non tender, soft Musculoskeletal: normal inspection Neurologic: alert, oriented x3, responsive Skin: no rash, warm/dry, other - No erythema swelling Lymphatic: no adenopathy Medical Decision Making Diagnostic Impression: Primary Impression: Muscle spasm ER Course Multiple differentials including but not limited to electrolyte pathology DVT Considered Patient does not show any clinical signs of that Has fairly significant pain syndrome Patient was provided with medication here Is encouraged highly to follow up with her primary physician Last Vital Signs Date Time Temp Pulse Resp B/P (MAP) Pulse Ox O2 Delivery O2 Flow Rate FiO2 06/25/17 04:59 90 18 128/63 97 06/25/17 04:43 97.9 Room Air 97.9 Status: improved Disposition: HOME, SELF-CARE Condition: Improved Scripts Gabapentin* (NEURONTIN*) 400 Mg Capsule 400 MG ORAL TWICE A DAY, #20 CAP Prov: Leslie Urban DO 06/25/17 Methocarbamol* (ROBAXIN-750*) 750 Mg Tablet 750 MG PO TID, #21 TAB 0 Refills Prov: Leslie Urban DO 06/25/17 Referrals: [facility] (PCP) Additional Instructions: Patient is provided with the discharge instructions notified to follow up with primary doctor in the next 2-3 days otherwise return to the er with any worsening symptoms. Please note that this report is being documented using [employer] technology. This can lead to erroneous entry secondary to incorrect interpretation by the dictating instrument. Leslie Urban DO Jun 25, 2017 05:09
[2017-06-25] MEDS: Methocarbamol 750mg tab ORAL ONE (05:26)
[2017-06-25] MEDS: HYDROcodone/Acetamin 10/325 tab ORAL ONE (05:28)
[2017-06-25] MEDS ORDERED: NEURONTIN400 MG ORAL (05:33)
[2017-06-25] MEDS ORDERED: ROBAXIN-750750 MG PO (05:33)
[2017-06-25 05:46] VITALS: BP 128/63
== END 2017-06-25 05:57 | disposition home or self-care (01) ==
LOC: EMR 04:59
DX: M62.838 Other muscle spasm (principal); M79.605 Pain in left leg; J45.909 Unspecified asthma, uncomplicated; Z87.11 Personal history of peptic ulcer disease; Z88.6 Allergy status to analgesic agent
CPT/HCPCS: 99284

== ENCOUNTER 2017-07-04 21:26 | Emergency (ER) | payer MEDICARE, OTHER ==
[~2017-07-04] VITALS: Ht 170.2 cm; Wt 77.1 kg
[~2017-07-04 21:26] MED LIST changes: +NEURONTIN400 MG ORAL
[2017-07-04] MEDS ORDERED: AMOXICILLIN500 MG ORAL (22:07)
[2017-07-04] MEDS ORDERED: ROBAXIN-750750 MG PO (22:07)
[2017-07-04] MEDS ORDERED: PREDNISONE20 MG ORAL (22:07)
[2017-07-04] MEDS ORDERED: ALBUTEROL SULF8.5 GM INH (22:07)
[2017-07-04] MEDS ORDERED: GABAPENTIN300 MG ORAL (22:07)
[2017-07-04 22:17] VITALS: BP 136/76
[2017-07-04 22:30] VITALS: BP 136/76
[2017-07-04] MEDS ORDERED: Acetaminophen 500mg (ES) tab ORAL ONE (22:30)
--- NOTE | 2017-07-05 01:15 | Emergency Room Report ---
History of Present Illness General Chief Complaint: Pain Source: Medical Record Present Illness HPI 51-year-old female presents ED for evaluation. States that she is out of her medications. Has history of muscle spasms and cramps and takes Robaxin and Neurontin. Has PMD appointment next week. Pain is cramping, 8 out of 10 in bilateral legs and lower back. Denies recent injury. Denies bowel or bladder incontinence. Denies leg or motor weakness. Also complaining of cough 3 days. History of smoking. History of emphysema. Cough is productive with yellowish phlegm. No other aggravating relieving factors. Denies any other associated symptoms Allergies: Coded Allergies: ASPIRIN (Verified Allergy, Intermediate, disorientation, 08/07/12) NSAIDS (NON-STEROIDAL ANTI-INFLAMMA (Verified Adverse Reaction, Intermediate, GI UPSET, 01/18/12) Patient History Past Medical History: asthma, GERD Past Surgical History: none Pertinent Family History: none Social History: Denies: smoking, alcohol use, drug use Now: No : 1 Para: 0 Immunizations: UTD Reviewed Nursing Documentation: PMH: Agreed; PSxH: Agreed Nursing Documentation-PMH Hx Cardiac Problems: Yes - Mitral Valve Prolapse Hx Asthma: Yes Hx Gastrointestinal Problems: Yes - Peptic ulcer Review of Systems All Other Systems: negative except mentioned in HPI Physical Exam Vital Signs Date Time Temp Pulse Resp B/P (MAP) Pulse Ox O2 Delivery O2 Flow Rate FiO2 07/04/17 21:41 98.0 89 18 136/76 96 Room Air 98.1 Sp02 EP Interpretation: reviewed, normal General Appearance: no apparent distress, alert, GCS 15, non-toxic Head: normocephalic, atraumatic Eyes: bilateral eye normal inspection, bilateral eye PERRL ENT: hearing grossly normal, normal pharynx, no angioedema, normal voice Neck: full range of motion, supple/symm/no masses Respiratory: chest non-tender, lungs clear, normal breath sounds, speaking full sentences Cardiovascular #1: regular rate, rhythm, no edema Cardiovascular #2: 2+ carotid (R), 2+ carotid (L), 2+ radial (R), 2+ radial (L) , 2+ dorsalis pedis (R), 2+ dorsalis pedis (L) Gastrointestinal: normal bowel sounds, non tender, soft, non-distended, no guarding, no rebound Rectal: deferred Genitourinary: normal inspection, no CVA tenderness Musculoskeletal: back normal, gait/station normal, normal range of motion, non- tender Neurologic: alert, oriented x3, responsive, motor strength/tone normal, sensory intact, speech normal Psychiatric: judgement/insight normal, memory normal, mood/affect normal, no suicidal/homicidal ideation Reflexes: 3+ bicep (R), 3+ bicep (L), 3+ tricep (R), 3+ tricep (L), 3+ knee (R) , 3+ knee (L) Skin: normal color, no rash, warm/dry, well hydrated Lymphatic: no adenopathy Medical Decision Making Diagnostic Impression: Primary Impression: COPD (chronic obstructive pulmonary disease) Qualified Codes: J44.9 - Chronic obstructive pulmonary disease, unspecified Additional Impression: Low back pain ER Course Hospital Course 51-year-old female presents ED complaining of productive cough. Also complaining of muscle cramps and back spasms Differential diagnoses include: URI, pharyngitis, otitis media, asthma Clinical course Patient placed on stretcher. After initial history, physical exam reveals a young male in no acute distress. Bilateral TM unremarkable. No pharyngeal erythema. No tonsillar exudates. No lymphadenopathy. lungs clear. abdomen soft. Given history of emphysema we'll prescribe antibiotics. I reviewed EMR. Patient has been here multiple times for refill of medications. I agreed to provide her with one week supply but explained that ER is not an appropriate avenue for medication refill. Diagnosis - COPD, low back pain Stable and discharged home with Rx albtuerol, amoxkcillin, gabapentin, robaxin. Instructed to followup with PMD. Return to ED if symptoms recur or worsen Last Vital Signs Date Time Temp Pulse Resp B/P (MAP) Pulse Ox O2 Delivery O2 Flow Rate FiO2 07/04/17 22:30 98.0 89 18 136/76 96 Room Air Status: improved Disposition: HOME, SELF-CARE Condition: Stable Scripts Gabapentin* (GABAPENTIN*) 300 Mg Capsule 300 MG ORAL THREE TIMES A DAY for 7 Days, CAP 0 Refills Prov: Solitario Hernandez MD 07/04/17 Methocarbamol* (ROBAXIN-750*) 750 Mg Tablet 750 MG PO TID, #21 TAB 0 Refills Prov: Solitario Hernandez MD 07/04/17 Amoxicillin* (AMOXIL*) 500 Mg Capsule 500 MG ORAL THREE TIMES A DAY, #21 CAP Prov: Solitario Hernandez MD 07/04/17 Prednisone* (PREDNISONE*) 20 Mg Tablet 40 MG ORAL DAILY, #10 TAB Prov: Solitario Hernandez MD 07/04/17 Albuterol Sulfate* (ALBUTEROL SULFATE MDI*) 8.5 Gm Hfa.aer.ad 2 PUFF INH Q6H, #1 EA 0 Refills Prov: Solitario Hernandez MD 07/04/17 Referrals: NOT CHOSEN IPA/,REFERRING (PCP) Patient Instructions: Acute Bronchitis, [id number] Solitario Hernandez MD Jul 05, 2017 01:15
== END 2017-07-04 22:30 | disposition home or self-care (01) ==
LOC: EMR 21:58
DX: J44.9 Chronic obstructive pulmonary disease, unspecified (principal); M54.5 Low back pain; J45.909 Unspecified asthma, uncomplicated; Z87.11 Personal history of peptic ulcer disease; Z88.6 Allergy status to analgesic agent
CPT/HCPCS: 99284

== ENCOUNTER 2017-09-12 12:45 | Emergency (ER) | payer MEDICARE, OTHER ==
[~2017-09-12] VITALS: Ht 167.6 cm; Wt 83.9 kg
[~2017-09-12 12:45] MED LIST changes: +GABAPENTIN300 MG ORAL; +PREDNISONE20 MG ORAL
[2017-09-12 12:50] VITALS: BP 137/97
[2017-09-12] MEDS ORDERED: Propranolol 40mg tab ORAL ONE (13:45)
[2017-09-12] MEDS ORDERED: HYDROcodone/Acetamin 7.5/325 tab ORAL ONE (13:45)
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
[2017-09-12] MEDS ORDERED: PROPRANOLOL HCL40 MG ORAL (13:54)
[2017-09-12] MEDS ORDERED: CEPHALEXIN500 MG ORAL (13:54)
[2017-09-12] MEDS ORDERED: GABAPENTIN300 MG ORAL (13:54)
[2017-09-12] MEDS ORDERED: BACITRACIN-P28.35 GM TP (13:54)
[2017-09-12 14:40] VITALS: BP 132/95
== END 2017-09-12 14:40 | disposition home or self-care (01) ==
LOC: EMR 13:39
DX: Z76.0 Encounter for issue of repeat prescription (principal); R52 Pain, unspecified; S60.511A Abrasion of right hand, initial encounter; S20.319A Abrasion of unspecified front wall of thorax, initial encounter; Y08.89XA Assault by other specified means, initial encounter; Y92.9 Unspecified place or not applicable; J45.909 Unspecified asthma, uncomplicated; Z87.11 Personal history of peptic ulcer disease; Z88.6 Allergy status to analgesic agent
CPT/HCPCS: 99284

== ENCOUNTER 2017-10-19 16:22 | Emergency (ER) | payer MEDICARE, OTHER ==
[~2017-10-19] VITALS: Ht 167.6 cm; Wt 83.9 kg
[~2017-10-19 16:22] MED LIST changes: +BACITRACIN-P28.35 GM TP
[2017-10-19] MEDS ORDERED: Propranolol 40mg tab ORAL ONE (17:00)
[2017-10-19] MEDS ORDERED: LORazepam 1mg tab ORAL ONE (17:00)
--- NOTE | 2017-10-19 17:26 | Emergency Room Report ---
History of Present Illness General Chief Complaint: General Complaint Present Illness HPI 52-year-old female presents to the emergency department complaining of onset of nausea, vomiting and palpitations 2 days. Patient states that she is out of her regularly prescribed medications. Patient states that she takes 40 mg Inderal twice a day in addition to Percocet and Ativan regularly. Patient is unable to see her primary care doctor as it is the weekend. Patient denies chest pain she reports some discomfort however denies abdominal pain or tenderness denies constipation reports one episode of diarrhea. She denies fevers, chills, dizziness, sudden onset headache or recent head trauma. PmHx of MVP, and several spinal fusions. Allergies: Coded Allergies: ASPIRIN (Verified Allergy, Intermediate, disorientation, 08/07/12) NSAIDS (NON-STEROIDAL ANTI-INFLAMMA (Verified Adverse Reaction, Intermediate, GI UPSET, 01/18/12) Patient History Past Medical History: see triage record Past Surgical History: none Pertinent Family History: none Last Menstrual Period: none Now: No : 1 Para: 0 Reviewed Nursing Documentation: PMH: Agreed; PSxH: Agreed Nursing Documentation-PMH Hx Cardiac Problems: Yes - Mitral Valve Prolapse Hx Asthma: Yes Hx Gastrointestinal Problems: Yes - Peptic ulcer Review of Systems All Other Systems: negative except mentioned in HPI Physical Exam Vital Signs Date Time Temp Pulse Resp B/P (MAP) Pulse Ox O2 Delivery O2 Flow Rate FiO2 10/19/17 16:39 98.8 124 18 143/93 96 Room Air 98.8 Sp02 EP Interpretation: reviewed, normal General Appearance: no apparent distress, alert, GCS 15, non-toxic Head: normocephalic, atraumatic Eyes: bilateral eye normal inspection, bilateral eye PERRL ENT: hearing grossly normal, normal voice Neck: full range of motion Respiratory: chest non-tender, lungs clear, normal breath sounds, no respiratory distress, no wheezing, speaking full sentences Cardiovascular #1: no edema, normal capillary refill, tachycardia Gastrointestinal: normal bowel sounds, non tender, soft Musculoskeletal: back normal, gait/station normal, normal range of motion, non- tender, other - muscle cramps generalized. Neurologic: alert, oriented x3, responsive, motor strength/tone normal, sensory intact, speech normal, grossly normal Psychiatric: judgement/insight normal Skin: normal color, no rash, warm/dry, well hydrated Medical Decision Making PA Attestation Dr. Urban is my supervising Physician whom patient management has been discussed with. Diagnostic Impression: Primary Impression: Palpitations Additional Impressions: Muscle spasm Tachycardia ER Course 52-year-old female presents to the emergency department complaining of onset of nausea, vomiting and palpitations 2 days. Patient states that she is out of her regularly prescribed medications. Patient states that she takes 40 mg Inderal twice a day in addition to Percocet and Ativan regularly. Patient is unable to see her primary care doctor as it is the weekend. Patient denies chest pain she reports some discomfort however denies abdominal pain or tenderness denies constipation reports one episode of diarrhea. She denies fevers, chills, dizziness, sudden onset headache or recent head trauma. PmHx of MVP, and several spinal fusions. Ddx considered but are not limited to NC, pneumonia, contusion, costochondritis , PE, ACS, Shoulder strain, Chest wall contusion. aortic dissection, opiate w/d , or drug seeking just to name a few. \ -CURES REVIEW: pt. is regularly receiving Ativan and Percocet around the same time monthly, there is no overlap of prescriptions , does have several prescribers, the last three months have been consistent with Dr. Qureshi. Vital signs: are WNL, pt. is afebrile H&PE are most consistent with mild W/d symptoms, ORDERS: - EK NSR -CBC,-CMP, Ck and -Troponin: all WNL/ Unremarkable ED INTERVENTIONS: - PT. placed on cardiac monitoring. - 1mg Ativan PO -40mg Propranolol PO - [place] PO HR has improved after interventions. pt. reports improvement of her pain and muscle cramps. pt. able to tolerate oral fluids. Stable for D/C home to close outpatient follow up with her PCP Dr. Qureshi. DISCHARGE: At this time pt. is stable for d/c to home. Will provide printed patient care instructions, and any necessary prescriptions. Care plan and follow up instructions have been discussed with the patient prior to discharge. Labs Test 10/19/17 17:14 White Blood Count 10.7 K/UL (4.8-10.8) Red Blood Count 4.70 M/UL (4.20-5.40) Hemoglobin 12.6 G/DL (12.0-16.0) Hematocrit 38.8 % (37.0-47.0) Mean Corpuscular Volume 83 FL (80-99) Mean Corpuscular Hemoglobin 26.8 PG (27.0-31.0) Mean Corpuscular Hemoglobin Concent 32.5 G/DL (32.0-36.0) Red Cell Distribution Width 12.8 % (11.6-14.8) Platelet Count 252 K/UL (150-450) Mean Platelet Volume 8.0 FL (6.5-10.1) Neutrophils (%) (Auto) 57.1 % (45.0-75.0) Lymphocytes (%) (Auto) 33.6 % (20.0-45.0) Monocytes (%) (Auto) 7.0 % (1.0-10.0) Eosinophils (%) (Auto) 0.9 % (0.0-3.0) Basophils (%) (Auto) 1.4 % (0.0-2.0) Sodium Level 138 MMOL/L (136-145) Potassium Level 3.8 MMOL/L (3.5-5.1) Chloride Level 104 MMOL/L (98-107) Carbon Dioxide Level 23 MMOL/L (21-32) Anion Gap 11 mmol/L (5-15) Blood Urea Nitrogen 16 mg/dL (7-18) Creatinine 0.8 MG/DL (0.55-1.30) Estimat Glomerular Filtration Rate > 60 mL/min (>60) Glucose Level 108 MG/DL (74-106) Calcium Level 9.8 MG/DL (8.5-10.1) Total Bilirubin 0.2 MG/DL (0.2-1.0) Aspartate Amino Transf (AST/SGOT) 17 U/L (15-37) Alanine Aminotransferase (ALT/SGPT) 21 U/L (12-78) Alkaline Phosphatase 101 U/L (46-116) Total Creatine Kinase 59 U/L (26-308) Troponin I 0.000 ng/mL (0.000-0.056) Total Protein 7.7 G/DL (6.4-8.2) Albumin 3.6 G/DL (3.4-5.0) Globulin 4.1 g/dL Albumin/Globulin Ratio 0.9 (1.0-2.7) EKG Diagnostic Results EP Interpretation: Rate: normal - 111 bpm Rhythm: NSR ST Segments: no acute changes ASA given to the pt in ED: No PA Scribe Text This Interpretation was scribed by OLIVE Urbano. Last Vital Signs Date Time Temp Pulse Resp B/P (MAP) Pulse Ox O2 Delivery O2 Flow Rate FiO2 10/19/17 16:39 98.8 124 18 143/93 96 Room Air 98.8 Status: improved Disposition: HOME, SELF-CARE Condition: Stable Scripts Propranolol Hcl* (INDERAL*) 40 Mg Tablet 40 MG ORAL BID, #20 TAB 0 Refills Prov: Carla Urbano 10/19/17 Lidocaine (Lidoderm) 1 Each Adh..patch 1 PATCH TOPIC DAILY, #30 PATCH 0 Refills Patch(es) may remain in place for up to 12 hours in any 24-hour period. Prov: Carla Urbano 10/19/17 Methocarbamol* (ROBAXIN*) 500 Mg Tablet 1000 MG PO TID, #42 TAB 0 Refills Prov: Carla Urbano 10/19/17 Patient Instructions: Medicine Refill at the Emergency Department Additional Instructions: Take medications as directed. Follow up with a Primary Care Provider in 3-5 days, even if your symptoms have resolved. --Please review list of primary care clinics, if you do not already have a primary care provider Return sooner to ED if new symptoms occur, or current symptoms become worse. Do not drink alcohol, drive, or operate heavy machinery while taking Robaxin as this may cause drowsiness. - Please note that this Emergency Department Report was dictated using [employer] vault custodian technology software, occasionally this can lead to erroneous entry secondary to interpretation by the dictation equipment. Carla Urbano Oct 19, 2017 17:26
[2017-10-19 17:28] LABS: BASOPHILS % (AUTO) 1.4 % (0.0-2.0); EOSINOPHILS % (AUTO) 0.9 % (0.0-3.0); HEMATOCRIT 38.8 % (37.0-47.0); HEMOGLOBIN 12.6 G/DL (12.0-16.0); LYMPHOCYTES % (AUTO) 33.6 % (20.0-45.0); MEAN CORPUSCULAR VOLUME 83 FL (80-99); NEUTROPHILS % (AUTO) 57.1 % (45.0-75.0); PLATELET COUNT 252 K/UL (150-450); RED CELL DISTRIBUTION WIDTH 12.8 % (11.6-14.8); WHITE BLOOD COUNT 10.7 K/UL (4.8-10.8)
[2017-10-19 17:30] VITALS: BP 114/87
[2017-10-19 17:46] LABS: ANION GAP 11 mmol/L (5-15); BLOOD UREA NITROGEN 16 mg/dL (7-18); CALCIUM 9.8 MG/DL (8.5-10.1); CARBON DIOXIDE 23 MMOL/L (21-32); CHLORIDE 104 MMOL/L (98-107); CREATININE 0.8 MG/DL (0.55-1.30); POTASSIUM 3.8 MMOL/L (3.5-5.1); SODIUM 138 MMOL/L (136-145)
[2017-10-19 17:51] LABS: ALANINE AMINOTRANSFERASE 21 U/L (12-78); ALBUMIN 3.6 G/DL (3.4-5.0); ALBUMIN/GLOBULIN RATIO 0.9 (1.0-2.7); ALKALINE PHOSPHATASE 101 U/L (46-116); ASPARTATE AMINO TRANSFERASE 17 U/L (15-37); BILIRUBIN,TOTAL 0.2 MG/DL (0.2-1.0); CREATINE KINASE 59 U/L (26-308)
[2017-10-19] MEDS ORDERED: ROBAXIN500 MG PO (18:28)
[2017-10-19] MEDS ORDERED: LIDODERM700 M1 TOPIC (18:28)
[2017-10-19] MEDS ORDERED: PROPRANOLOL HCL40 MG ORAL (18:28)
[2017-10-19] MEDS ORDERED: HYDROcodone/Acetamin 7.5/325 tab ORAL ONE (18:30)
[2017-10-19 18:36] VITALS: BP 105/86
[2017-10-19 18:38] VITALS: BP 105/86
--- NOTE | 2017-10-21 19:34 | Cardiology Report ---
APPROVED REPORT EKG Measurement Heart [id number] MT [id number] [id number] Sinus tachycardia Otherwise normal ECG
== END 2017-10-19 18:50 | disposition home or self-care (01) ==
LOC: EMR 18:50
DX: R00.2 Palpitations (principal); M62.838 Other muscle spasm; R00.0 Tachycardia, unspecified; I34.1 Nonrheumatic mitral (valve) prolapse; J45.909 Unspecified asthma, uncomplicated; Z87.11 Personal history of peptic ulcer disease; Z88.6 Allergy status to analgesic agent
CPT/HCPCS: 36415; 80053; 82550; 84484; 85025; 93005; 96360; 99284

== ENCOUNTER 2017-10-21 16:48 | Emergency (ER) | payer MEDICARE, OTHER ==
[~2017-10-21] VITALS: Ht 167.6 cm; Wt 83.9 kg
[~2017-10-21 16:48] MED LIST changes: +LIDODERM700 M1 TOPIC
[2017-10-21] MEDS ORDERED: Norco 5mg/325mg tab ORAL ONE (17:30)
[2017-10-21 18:11] VITALS: BP 144/96
--- NOTE | 2017-10-21 19:30 | Emergency Room Report ---
History of Present Illness General Chief Complaint: Pain Source: Patient Present Illness HPI 52-year-old female presents ED complaining of back pain, weakness. She states she was seen here 2 days ago for treatment of her palpitations, chronic pain. Patient was subsequent discharged on prescription for Inderal. Patient went her PMD today to make appointment but states she cannot get a appointment for some time. She is here because pain is persisting. History of chronic pain to her back. 10 out of 10, throbbing, nonradiating. Denies any bowel or bladder incontinence. Denies any leg or motor weakness. No other aggravating relieving factors. Denies any other associated symptoms Allergies: Coded Allergies: ASPIRIN (Verified Allergy, Intermediate, disorientation, 08/07/12) NSAIDS (NON-STEROIDAL ANTI-INFLAMMA (Verified Adverse Reaction, Intermediate, GI UPSET, 01/18/12) Patient History Past Medical History: asthma, ulcer, other - MVP Pertinent Family History: none Social History: Denies: smoking, alcohol use, drug use Last Menstrual Period: na Now: No Immunizations: UTD Reviewed Nursing Documentation: PMH: Agreed; PSxH: Agreed Nursing Documentation-PMH Past Medical History: No History, Except For Hx Cardiac Problems: Yes - Mitral Valve Prolapse Hx Asthma: Yes Hx Gastrointestinal Problems: Yes - Peptic ulcer Review of Systems All Other Systems: negative except mentioned in HPI Physical Exam Vital Signs Date Time Temp Pulse Resp B/P (MAP) Pulse Ox O2 Delivery O2 Flow Rate FiO2 10/21/17 16:59 98.6 113 20 145/93 98 Room Air 98.6 Sp02 EP Interpretation: reviewed, normal General Appearance: alert, GCS 15, non-toxic, mild distress Head: normocephalic, atraumatic Eyes: bilateral eye normal inspection, bilateral eye PERRL ENT: hearing grossly normal, normal pharynx, no angioedema, normal voice Neck: full range of motion, supple/symm/no masses Respiratory: chest non-tender, lungs clear, normal breath sounds, speaking full sentences Cardiovascular #1: regular rate, rhythm, no edema Cardiovascular #2: 2+ carotid (R), 2+ carotid (L), 2+ radial (R), 2+ radial (L) , 2+ dorsalis pedis (R), 2+ dorsalis pedis (L) Gastrointestinal: normal bowel sounds, non tender, soft, non-distended, no guarding, no rebound Rectal: deferred Genitourinary: normal inspection, no CVA tenderness, vertebral tenderness Musculoskeletal: back normal, gait/station normal, normal range of motion, non- tender Neurologic: alert, oriented x3, responsive, motor strength/tone normal, sensory intact, speech normal Psychiatric: judgement/insight normal, memory normal, mood/affect normal, no suicidal/homicidal ideation Reflexes: 3+ bicep (R), 3+ bicep (L), 3+ tricep (R), 3+ tricep (L), 3+ knee (R) , 3+ knee (L) Skin: normal color, no rash, warm/dry, well hydrated Lymphatic: no adenopathy Medical Decision Making Diagnostic Impression: Primary Impression: Chronic pain Additional Impression: Drug-seeking behavior ER Course Hospital Course 52-year-old female presents ED complaining of lower back pain. No evidence of trauma Differential diagnoses include: pyelonephritis, kidney stone, muscle strain, Lspine fracture Clinical course Patient placed on stretcher. After initial history and physical I reviewed EMR. Patient was seen here 2 days ago for palpitations, chronic back pain. Patient subsequently treated and discharged. Given prescriptions for Inderal. I reviewed CURES; patient does received multiple narcotic prescriptions. I explained to patient I will not be able to refill her pain medications and she needs to follow-up with her PMD. I agreed to provide her with one tablet of [place] here Diagnosis - chronic pain, drug-seeking behavior Stable and discharged to home. Followup with PMD. Return to ED if symptoms recur or worsen Last Vital Signs Date Time Temp Pulse Resp B/P (MAP) Pulse Ox O2 Delivery O2 Flow Rate FiO2 10/21/17 18:11 98.4 99 18 144/96 96 Room Air 98.4 Status: improved Disposition: HOME, SELF-CARE Condition: Stable Referrals: Hector Qureshi MD (PCP) Patient Instructions: Chronic Pain Solitario Hernandez MD Oct 21, 2017 19:30
== END 2017-10-21 18:00 | disposition home or self-care (01) ==
LOC: EMR 17:57
DX: G89.29 Other chronic pain (principal); M54.5 Low back pain; Z76.5 Malingerer [conscious simulation]; J45.909 Unspecified asthma, uncomplicated
CPT/HCPCS: 99283

== ENCOUNTER 2017-10-31 17:00 | Emergency (ER) | payer MEDICARE, OTHER ==
[~2017-10-31] VITALS: Ht 167.6 cm; Wt 83.9 kg
[2017-10-31] MEDS ORDERED: Acetaminophen 500mg (ES) tab ORAL ONE (17:30)
[2017-10-31] MEDS ORDERED: BACTRIM DS TAB1 EAC1 ORAL (17:36)
[2017-10-31] MEDS ORDERED: PREDNISONE20 MG ORAL ×2 (17:36→17:50)
[2017-10-31] MEDS ORDERED: PERMETHRIN60 GM TOPIC (17:36)
[2017-10-31] MEDS ORDERED: ANTI-ITCH28 G1 TP (17:36)
--- NOTE | 2017-10-31 17:36 | Emergency Room Report ---
History of Present Illness General Chief Complaint: Skin Rash/Abscess Source: Patient, Medical Record Present Illness HPI 52-year-old female patient presents ER complaining of possible bug bites for the past few days. Reports present on arms and face. Reports been present for 5 days, extremely pruritic. Reports that she is using Benadryl, topical Benadryl, calamine lotion without relief of symptoms. Denies fever, chest pain , shortness of breath, vomiting, abdominal pain. Denies blisters or skin sloughing. States she has been scratching continuously. Reports new bed brought into her apartment and concerned regarding possible bugs. Reports has previously had testing done for lupus and other conditions that came back negative. Allergies: Coded Allergies: ASPIRIN (Verified Allergy, Intermediate, disorientation, 08/07/12) NSAIDS (NON-STEROIDAL ANTI-INFLAMMA (Verified Adverse Reaction, Intermediate, GI UPSET, 01/18/12) Patient History Past Medical History: see triage record Reviewed Nursing Documentation: PMH: Agreed; PSxH: Agreed Nursing Documentation-PMH Past Medical History: No History, Except For Hx Cardiac Problems: Yes - Mitral Valve Prolapse Hx Asthma: Yes Hx Gastrointestinal Problems: Yes - Peptic ulcer Review of Systems All Other Systems: negative except mentioned in HPI Physical Exam Vital Signs Date Time Temp Pulse Resp B/P (MAP) Pulse Ox O2 Delivery O2 Flow Rate FiO2 10/31/17 17:17 98.8 68 18 130/68 98 Room Air 98.8 Sp02 EP Interpretation: reviewed, normal General Appearance: well appearing, no apparent distress, alert, GCS 15, non- toxic Head: normocephalic, atraumatic Eyes: bilateral eye normal inspection, bilateral eye PERRL ENT: hearing grossly normal, normal pharynx, no angioedema, normal voice, uvula midline, moist mucus membranes Neck: full range of motion Respiratory: lungs clear, normal breath sounds, no rhonchi, no respiratory distress, no accessory muscle use, no wheezing, speaking full sentences Cardiovascular #1: regular rate, rhythm, no edema Musculoskeletal: back normal, digits/nails normal, gait/station normal, normal range of motion, non-tender Neurologic: alert, oriented x3, responsive, motor strength/tone normal, sensory intact Psychiatric: mood/affect normal Skin: other - Multiple hyperpigmented macules with excoriations, no surrounding erythema or edema, scabbing present, no blisters, no drainage, no bite mariee, no target lesion Medical Decision Making PA Attestation Dr. Hernandez is my supervising Physician whom patient management has been discussed with. Diagnostic Impression: Primary Impression: Rash and other nonspecific skin eruption ER Course Pt. presents to the ED c/o rash. Ddx considered but are not limited to atopic dermatitis, scabies, shingles, hives, urticaria, angiodema, allergic reaction, impetigo. no vesicles, does not follow single dermatome, no burning pain, low suspicion for shingles. Vital signs: are WNL, pt. is afebrile Ordered medication. ER COURSE Rash consistent with possible bug bites with multiple excoriations. Continue taking Benadryl for itching symptoms, SE drowsiness, do not take prior to drinking, driving, or operating heavy machinery. Will provide hydrocortisone and prednisone for itching symptoms. Will provide abx coverage for possible infection Provided first dose of prednisone in the ER, begin taking medication tomorrow. Stop itching and scratching, apply cool compresses. Followup with dermatology. Patient states will contact her infection control manager and followup with them. Provided with derm followup information. DISCHARGE: -Rx given for Prednisone for pruritis. First dose provided in the ER. -Rx given for Permethrin cream cover for possible infection. -Rx given for Hydrocortisone. Do not apply to face or skin creases. -Rx given for Bactrim to cover for possible infection. At this time pt. is stable for d/c to home. Patient resting comfortably, in no acute distress, nontoxic appearing. Will provide printed patient care instructions, and any necessary prescriptions. Care plan and follow up instructions have been discussed with the patient prior to discharge. Patient provided with list of healthcare clinics to establish primary care physician. Patient instructed to follow-up with primary care provider in 3 - 5 days. Patient questions asked and answered. ER precautions given. Patient instructed to return to ER immediately for any new or worsening of symptoms including but not limited to increasing SOB, persistent fever. - Please note that this Emergency Department Report was dictated using [employer] technology software, occasionally this can lead to erroneous entry secondary to interpretation by the dictation equipment. Last Vital Signs Date Time Temp Pulse Resp B/P (MAP) Pulse Ox O2 Delivery O2 Flow Rate FiO2 10/31/17 17:17 98.8 68 18 130/68 98 Room Air 98.8 Disposition: HOME, SELF-CARE Condition: Stable Scripts Prednisone* (PREDNISONE*) 20 Mg Tablet 40 MG ORAL DAILY for 4 Days, #8 TAB Prov: Shahbaz Gill 10/31/17 Trimethoprim/Sulfamethoxazole 160/800* (BACTRIM DS TABLET*) 1 Each Tablet 1 TAB ORAL TWICE A DAY for 7 Days, #14 TAB Prov: Shahbaz Gill 10/31/17 Hydrocortisone 2% Cream (ANTI-ITCH 2% CREAM) Y Cr 28 GM TP BID, #28 GM Prov: Shahbaz Gill 10/31/17 Permethrin* (ELIMITE*) 60 Gm Cream..g. 1 APPLIC TOPIC ONCE, #60 GM 0 Refills Apply cream from head to toe; leave on for 8-14 hours before washing off with water; may reapply in 1 week if live mites appear. Prov: Shahbaz Gill 10/31/17 Patient Instructions: Bedbugs, Chrr-os-Assp, Insect Bite, Zypm-[id number]-Farx, Rash Additional Instructions: Followup with primary care provider in 3 -5 days. Request referral to dermatology. Do not scratch or itch. Apply cool compresses to affected area. Take medications as directed. Do not apply topical medication to face or skin creases. SE Benadryl drowsiness, do not take prior to drinking, driving, operating heavy machinery. Patient questions asked and answered. ER precautions given, patient instructed to return to ER immediately for any new or worsening of symptoms. [facility] Shahbaz Gill Oct 31, 2017 17:36
[2017-10-31 17:50] VITALS: BP 124/72
[2017-10-31 17:59] VITALS: BP 124/72
== END 2017-10-31 18:20 | disposition home or self-care (01) ==
LOC: EMR 17:34
DX: R21 Rash and other nonspecific skin eruption (principal); J45.909 Unspecified asthma, uncomplicated; I34.1 Nonrheumatic mitral (valve) prolapse
CPT/HCPCS: 99283; J7512

== ENCOUNTER 2017-11-10 10:15 | Emergency (ER) | payer MEDICARE, OTHER ==
[~2017-11-10] VITALS: Ht 167.6 cm; Wt 83.9 kg
[~2017-11-10 10:15] MED LIST changes: +ANTI-ITCH28 G1 TP; +PERMETHRIN60 GM TOPIC
[2017-11-10] MEDS ORDERED: Solu-MEDROL 125mg Inj IM ONE (10:45)
[2017-11-10 11:51] LABS: APPEARANCE,URINE CLEAR; BILIRUBIN, URINE NEGATIVE (NEGATIVE); COLOR,URINE PALE YELLOW; GLUCOSE, URINE (UA) NEGATIVE (NEGATIVE); KETONES,URINE NEGATIVE (NEGATIVE); LEUKOCYTE ESTERASE ,URINE NEGATIVE (NEGATIVE); NITRITE,URINE NEGATIVE (NEGATIVE); PH,URINE 6.5 (4.5-8.0); PROTEIN,URINE NEGATIVE (NEGATIVE); UROBILINOGEN,URINE NORMAL MG/DL (0.0-1.0)
--- NOTE | 2017-11-10 12:39 | Emergency Room Report ---
History of Present Illness General Chief Complaint: Skin Rash/Abscess Source: Patient, Medical Record Present Illness HPI Patient with 1 week of rash. Face, and upper arms. She believes this was after taking some medication or something she was in contact with (clothes?). She has been using benadryl, bactriban, hydrocortisone and taking her usual medications. She states there is some material draining from the lesions when she applies the creams. Denies fevers, oral or genital lesions. The lesions itch and burn. The pain is rated 5/10. She has a history of lupus. In addition, she has some R lower back pain. She feels muscle pulling and somewhat unsteady gait due to the pulling. She has chronic back pain. No NVD, dysuria, cough, wheezing, headache. No increased depression. No extremity joint pain. Allergies: Coded Allergies: ASPIRIN (Verified Allergy, Intermediate, disorientation, 08/07/12) SULFAMETHOXAZOLE (Verified Allergy, Unknown, 11/10/17) TRIMETHOPRIM (Verified Allergy, Unknown, 11/10/17) NSAIDS (NON-STEROIDAL ANTI-INFLAMMA (Verified Adverse Reaction, Intermediate, GI UPSET, 01/18/12) Patient History Past Medical History: see triage record Social History: Reports: smoking, drug use - [facility] Social History Narrative at home Last Menstrual Period: 8 yrs ago Reviewed Nursing Documentation: PMH: Agreed; PSxH: Agreed Nursing Documentation-PMH Past Medical History: No History, Except For Hx Cardiac Problems: Yes - Mitral Valve Prolapse Hx Asthma: Yes Hx Gastrointestinal Problems: Yes - Peptic ulcer Review of Systems All Other Systems: negative except mentioned in HPI Physical Exam Vital Signs Date Time Temp Pulse Resp B/P (MAP) Pulse Ox O2 Delivery O2 Flow Rate FiO2 11/10/17 10:22 97.9 86 18 151/81 95 Room Air 97.9 General Appearance: well appearing, no apparent distress, non-toxic Head: normocephalic, atraumatic Eyes: bilateral eye normal inspection, bilateral eye PERRL ENT: hearing grossly normal, normal voice, moist mucus membranes Neck: full range of motion, supple Respiratory: lungs clear, no respiratory distress, speaking full sentences Cardiovascular #1: normal peripheral pulses, regular rate, rhythm Cardiovascular #2: 2+ radial (L) Gastrointestinal: normal inspection Genitourinary: no CVA tenderness Musculoskeletal: digits/nails normal, gait/station normal, normal range of motion, no calf tenderness Neurologic: alert, oriented x3, normal gait, grossly normal Psychiatric: mood/affect normal Skin: other - diffuse excoriated lesions with eschar - face and upper arms, no erythema Medical Decision Making Diagnostic Impression: Primary Impression: Contact dermatitis Qualified Codes: L25.9 - Unspecified contact dermatitis, unspecified cause Additional Impression: Allergic reaction Qualified Codes: T78.40XD - Allergy, unspecified, subsequent encounter ER Course Patient with rash face and upper extremities 1 week. DDx: lupus, contact dermatitis, allergic reaction, erythema multiforme (late presentation), cellulitis amongst others. No evidence of oral lesions - not Ishmael Rashawn syndrome. Not on systemic steroids. Not cellulitic. Steroids indicated and UA. Back symptoms are similar to prior discomfort from sciatica and disk problems. UA with negative tox. No UTI. Improved with treatment. Advised to follow up with her doctor. Patient stable for outpatient observation and treatment. Laboratory Tests Test 11/10/17 11:37 Urine Color Pale yellow Urine Appearance Clear Urine pH 6.5 (4.5-8.0) Urine Specific Clancy 1.010 (1.005-1.035) Urine Protein Negative (NEGATIVE) Urine Glucose (UA) Negative (NEGATIVE) Urine Ketones Negative (NEGATIVE) Urine Occult Blood Negative (NEGATIVE) Urine Nitrite Negative (NEGATIVE) Urine Bilirubin Negative (NEGATIVE) Urine Urobilinogen Normal MG/DL (0.0-1.0) Urine Leukocyte Esterase Negative (NEGATIVE) Urine Opiates Screen Negative (NEGATIVE) Urine Barbiturates Screen Negative (NEGATIVE) Phencyclidine (PCP) Screen Negative (NEGATIVE) Urine Amphetamines Screen Negative (NEGATIVE) Urine Benzodiazepines Screen Negative (NEGATIVE) Urine Cocaine Screen Negative (NEGATIVE) Urine Marijuana (THC) Screen Positive (NEGATIVE) H Last Vital Signs Date Time Temp Pulse Resp B/P (MAP) Pulse Ox O2 Delivery O2 Flow Rate FiO2 11/10/17 12:59 98.0 16 147/85 97 Room Air 98.0 11/10/17 10:22 86 Status: improved Disposition: HOME, SELF-CARE Condition: Improved Scripts Bacitracin (Bacitracin) 28.4 Gm Oint...g. 1 APPLIC TOPIC BID, #20 GM Prov: Ritchie Tellez M.D. 11/10/17 Hydroxyzine Pamoate* (VISTARIL*) 50 Mg Capsule 50 MG ORAL Q8HR PRN for Itching, #20 TAB 0 Refills Prov: Ritchie Tellez M.D. 11/10/17 Prednisone* (PREDNISONE*) 20 Mg Tablet 40 MG ORAL DAILY, #10 TAB Prov: Ritchie Tellez M.D. 11/10/17 Referrals: Hector Qureshi MD (PCP) Ritchie Tellez M.D. Nov 10, 2017 12:39
[2017-11-10] MEDS ORDERED: PREDNISONE20 MG ORAL (12:46)
[2017-11-10] MEDS ORDERED: VISTARIL50 MG ORAL (12:46)
[2017-11-10] MEDS ORDERED: BACITRACIN15 GM TOPIC (12:46)
[2017-11-10 12:58] VITALS: BP 147/85
[2017-11-10 12:59] VITALS: BP 147/85
== END 2017-11-10 13:00 | disposition home or self-care (01) ==
LOC: EMR 10:50
DX: L25.9 Unspecified contact dermatitis, unspecified cause (principal); T78.40XA Allergy, unspecified, initial encounter; L03.211 Cellulitis of face; L03.119 Cellulitis of unspecified part of limb; G89.29 Other chronic pain; L93.2 Other local lupus erythematosus; R26.81 Unsteadiness on feet; G62.9 Polyneuropathy, unspecified; K27.9 Peptic ulcer, site unspecified, unspecified as acute or chronic, without hemorrhage or perforation; M51.17 Intervertebral disc disorders with radiculopathy, lumbosacral region; M54.41 Lumbago with sciatica, right side; F12.90 Cannabis use, unspecified, uncomplicated; F17.200 Nicotine dependence, unspecified, uncomplicated; Z88.6 Allergy status to analgesic agent; Z88.2 Allergy status to sulfonamides; Z88.8 Allergy status to other drugs, medicaments and biological substances; Z88.3 Allergy status to other anti-infective agents
CPT/HCPCS: 80307; 81003; 96372; 99283; J2930

== ENCOUNTER 2017-12-17 01:12 | Emergency (ER) | payer MEDICARE, OTHER ==
[~2017-12-17] VITALS: Ht 167.6 cm; Wt 86.2 kg
[~2017-12-17 01:12] MED LIST changes: +VISTARIL50 MG ORAL
[2017-12-17 01:20] VITALS: BP 154/96
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
[2017-12-17] MEDS ORDERED: Norco 5mg/325mg tab ORAL ONE (02:00)
[2017-12-17 02:07] VITALS: BP 158/95
== END 2017-12-17 02:07 | disposition home or self-care (01) ==
LOC: EMR 01:31
DX: G89.29 Other chronic pain (principal); F41.9 Anxiety disorder, unspecified; T14.8XXA Other injury of unspecified body region, initial encounter; Y04.2XXA Assault by strike against or bumped into by another person, initial encounter; Y92.89 Other specified places as the place of occurrence of the external cause; J45.909 Unspecified asthma, uncomplicated; Z88.6 Allergy status to analgesic agent; Z87.11 Personal history of peptic ulcer disease; I34.1 Nonrheumatic mitral (valve) prolapse
CPT/HCPCS: 99283

== ENCOUNTER 2017-12-21 21:28 | Emergency (ER) | payer MEDICARE, OTHER ==
[~2017-12-21] VITALS: Ht 167.6 cm; Wt 86.2 kg
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
[2017-12-21 22:37] VITALS: BP 134/84
--- NOTE | 2017-12-21 22:56 | Diagnostic Imaging Report ---
EXAM: XR Left Ankle Complete, 3 or More Views CLINICAL HISTORY: TRAUMA TECHNIQUE: Frontal, lateral and oblique views of the left ankle. COMPARISON: No relevant prior studies available. FINDINGS: Bones/joints: Unremarkable. No acute fracture. No dislocation. Soft tissues: Unremarkable. IMPRESSION: Normal left ankle x-rays.
== END 2017-12-21 22:38 | disposition home or self-care (01) ==
LOC: EMR 21:43
DX: S93.402A Sprain of unspecified ligament of left ankle, initial encounter (principal); G89.4 Chronic pain syndrome; X50.1XXA Overexertion from prolonged static or awkward postures, initial encounter; Y93.9 Activity, unspecified; Y92.9 Unspecified place or not applicable; Z88.6 Allergy status to analgesic agent; Z88.2 Allergy status to sulfonamides; Z88.8 Allergy status to other drugs, medicaments and biological substances; Z87.11 Personal history of peptic ulcer disease
CPT/HCPCS: 99283

== ENCOUNTER 2018-07-29 21:35 | Emergency (ER) | payer MEDICARE, OTHER ==
[~2018-07-29] VITALS: Ht 167.6 cm; Wt 86.2 kg
[2018-07-29] MEDS ORDERED: NITROFURANTOIN100 M2 ORAL (21:40)
[2018-07-29] MEDS ORDERED: ROBAXIN500 MG PO (21:40)
--- NOTE | 2018-07-29 21:45 | NUR ---
ED Nurse Note: RECIEVED PT FROM HOME,A WAKE, ALERT AND ORIENTED X 4, PT IS HERE FOR CHRONIC PAIN, TP HAS HISTORY OF BACK PAIN WITH SPINAL CONDITION, PT STATES HER PAIN MEDS ARE NOT EFFECTIVE FOR PAST 2 DAYS, PT DENIES INJURY, FALL OR ANY OTHER COMPLAITNS, PT ASSISTED TO BED, WILL RESUME CARE ORDERED AND CLOSELY MONITOR.
[2018-07-29] MEDS ORDERED: Morphine Sulfate 10mg/ml Inj IM ONE (22:00)
[2018-07-29] MEDS ORDERED: HYDROCODON-ACE1 EA15 ORAL (22:00)
--- NOTE | 2018-07-29 22:01 | Emergency Room Report ---
History of Present Illness General Chief Complaint: Back Pain-No Injury Source: Patient, Medical Record Present Illness HPI This is a 52-year-old female with history of chronic pain. She is currently not taking any medication or seen a pain specialist anymore. She presents with chief complaint of lower back pain. Pain on the left side going down her leg. Similar symptom in the past. Gradual onset. Worse in the last couple days. Unable to sleep because of the pain. [id number] Tylenol not helping her. Denies any fever chills denies any trauma. Denies any numbness or anesthesia. Denies any incontinence of bowel or urine. Allergies: Coded Allergies: ASPIRIN (Verified Allergy, Intermediate, disorientation, 08/07/12) SULFAMETHOXAZOLE (Verified Allergy, Unknown, 11/10/17) TRIMETHOPRIM (Verified Allergy, Unknown, 11/10/17) NSAIDS (NON-STEROIDAL ANTI-INFLAMMA (Verified Adverse Reaction, Intermediate, GI UPSET, 01/18/12) Patient History Past Medical History: see triage record, old chart reviewed Past Surgical History: other Pertinent Family History: none Social History: Reports: smoking Last Menstrual Period: n/a Now: No Immunizations: other Reviewed Nursing Documentation: PMH: Agreed; PSxH: Agreed Nursing Documentation-PMH Past Medical History: No History, Except For Hx Cardiac Problems: Yes - Mitral Valve Prolapse Hx Asthma: Yes Hx Gastrointestinal Problems: Yes - Peptic ulcer Review of Systems Eye: Denies: eye pain, blurred vision ENT: Denies: ear pain, nose congestion, throat swelling Respiratory: Denies: cough, shortness of breath Cardiovascular: Denies: chest pain, palpitations Gastrointestinal: Denies: abdominal pain, diarrhea, nausea, vomiting Musculoskeletal: Reports: back pain; Denies: joint pain Skin: Denies: rash Neurological: Denies: headache, numbness Endocrine: Denies: increased thirst, increased urine Hematologic/Lymphatic: Denies: easy bruising All Other Systems: negative except mentioned in HPI Physical Exam Vital Signs Date Time Temp Pulse Resp B/P (MAP) Pulse Ox O2 Delivery O2 Flow Rate FiO2 07/29/18 21:36 98.2 88 18 93 Room Air vital signs unremarkable Sp02 EP Interpretation: reviewed, normal General Appearance: well appearing, no apparent distress, alert Head: normocephalic, atraumatic Eyes: bilateral eye PERRL, bilateral eye EOMI ENT: hearing grossly normal, normal pharynx Neck: full range of motion, supple, no meningismus Respiratory: chest non-tender, lungs clear, normal breath sounds Cardiovascular #1: regular rate, rhythm, no murmur Gastrointestinal: normal bowel sounds, non tender, no mass, no organomegaly, no bruit, non-distended Musculoskeletal: back normal - Tenderness over the left lower lumbar area. No step-off, gait/station normal, normal range of motion Psychiatric: mood/affect normal Skin: warm/dry Medical Decision Making Diagnostic Impression: Primary Impression: Back pain Qualified Codes: M54.42 - Lumbago with sciatica, left side ER Course Patient presents with exacerbation of her chronic back pain. No evidence of her chronic syndrome, spinal epidural abscess or neoplastic process. Last Vital Signs Date Time Temp Pulse Resp B/P (MAP) Pulse Ox O2 Delivery O2 Flow Rate FiO2 07/29/18 21:36 98.2 88 18 93 Room Air Status: improved Disposition: HOME, SELF-CARE Condition: Stable Scripts Hydrocodone/Acetaminophen 5-325* (HYDROCODONE/ACETAMINOPHEN 5-325*) 1 Each Tablet 1 TAB ORAL Q6H PRN for For Pain, #15 TAB 0 Refills Prov: Erasmo Frederick MD 07/29/18 Patient Instructions: Back Pain, Adult Additional Instructions: Follow-up with your Dr. in 3-5 days. Return if worse. Erasmo Frederick MD July 29, 2018 22:01
[2018-07-29] MEDS ORDERED: NEURONTIN300 MG ORAL (22:23)
[2018-07-29 22:25] VITALS: BP 141/88
[2018-07-29 22:35] VITALS: BP 141/88
--- NOTE | 2018-07-29 22:35 | NUR ---
ED Nurse Note: PT MEDICATED FOR PAIN AND BEING D/C TO HOME WITH PRESCRIPTION, PT HAS MANAGER MECHANICAL, GIVEN F;U INFO AND AFTER CARE INSTRUCTIONS, PT ALSO RE-VERBALIZES S/S TO MONITOR FOR, ARMBAND REMOVED, PT IS AMBULATORY, PAIN LEVEL ALREADY DECREASING, NAD NTOED DURING D/C TO HOME.
== END 2018-07-29 22:40 | disposition home or self-care (01) ==
LOC: EMR 22:00
DX: M54.42 Lumbago with sciatica, left side (principal); Z88.6 Allergy status to analgesic agent; Z88.2 Allergy status to sulfonamides; F17.200 Nicotine dependence, unspecified, uncomplicated; Z87.19 Personal history of other diseases of the digestive system
CPT/HCPCS: 96372; 99283; J2270

== ENCOUNTER 2018-10-11 00:02 | Emergency (ER) | payer MEDICARE, OTHER ==
[~2018-10-11] VITALS: Ht 167.6 cm; Wt 93.0 kg
[~2018-10-11 00:02] MED LIST changes: +HYDROCODON-ACE1 EA15 ORAL; +NITROFURANTOIN100 M2 ORAL
[2018-10-11 00:20] VITALS: BP 131/84
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
[2018-10-11] MEDS ORDERED: VIBRAMYCIN100 MG ORAL (00:35)
[2018-10-11 01:00] VITALS: BP 131/84
--- NOTE | 2018-10-11 01:00 | NUR ---
ER Nurse Note: Pt seen, treated, medically cleared for discharge by ERMD. Discharge instuctions and prescriptions given with repeat verbalization by pt. Emphasized to follow up with primay care provider; take whole course of medication. Explained each medication. All orders completed per ERMD orders. Pt a&ox4, VSS, no signs of distress. ID band removed. All questions answered per pt's questions. Pt left with all belongings, left with own transportation.
--- NOTE | 2018-10-13 22:00 | Emergency Room Report ---
History of Present Illness General Chief Complaint: Skin Rash/Abscess Source: Medical Record Present Illness HPI Patient is a 53-year-old female presented after increased skin rash as well as dental discomfort. Patient had recently been started on clindamycin after recently being seen for skin rash. She had been noted to have prior history of multiple antibiotic allergies. She denies any fever. She reports having discomfort to both upper extremities as well as skin rash. She had not been having any numbness or weakness. She had been able to ambulate without assistance. She denies any severe abdominal pain. Patient had not been having any vomiting or diarrhea Allergies: Coded Allergies: ASPIRIN (Verified Allergy, Intermediate, disorientation, 08/07/12) AMOXICILLIN (Verified Allergy, Unknown, 10/11/18) SULFAMETHOXAZOLE (Verified Allergy, Unknown, 11/10/17) TRIMETHOPRIM (Verified Allergy, Unknown, 11/10/17) NSAIDS (NON-STEROIDAL ANTI-INFLAMMA (Verified Adverse Reaction, Intermediate, GI UPSET, 01/18/12) Patient History Reviewed Nursing Documentation: PMH: Agreed; PSxH: Agreed Nursing Documentation-PMH Hx Cardiac Problems: Yes - Mitral Valve Prolapse Hx Asthma: Yes Hx Gastrointestinal Problems: Yes - Peptic ulcer Review of Systems All Other Systems: negative except mentioned in HPI Physical Exam Vital Signs Date Time Temp Pulse Resp B/P (MAP) Pulse Ox O2 Delivery O2 Flow Rate FiO2 10/11/18 00:08 98.2 101 18 131/84 (100) 94 Room Air General Appearance: well appearing, no apparent distress, alert, GCS 15 Head: normocephalic, atraumatic ENT: hearing grossly normal, normal voice Neck: full range of motion, supple Respiratory: no respiratory distress, speaking full sentences Musculoskeletal: no calf tenderness Neurologic: normal gait Psychiatric: mood/affect normal Skin: no rash Medical Decision Making Diagnostic Impression: Primary Impression: Dental caries Additional Impression: Folliculitis Last Vital Signs Date Time Temp Pulse Resp B/P (MAP) Pulse Ox O2 Delivery O2 Flow Rate FiO2 10/11/18 01:00 98.2 98 18 131/84 94 Room Air Status: improved Disposition: HOME, SELF-CARE Condition: Stable Scripts Doxycycline Hyclate* (VIBRAMYCIN*) 100 Mg Capsule 100 MG ORAL EVERY 12 HOURS, #14 CAP 0 Refills Prov: Jordan Mckeon MD 10/11/18 Referrals: Hector Qureshi MD (PCP) Patient Instructions: Jordan Fountain MD Oct 13, 2018 22:00
== END 2018-10-11 01:00 | disposition home or self-care (01) ==
LOC: EMR 00:10
DX: L73.9 Follicular disorder, unspecified (principal); K02.9 Dental caries, unspecified; Z88.6 Allergy status to analgesic agent; Z88.2 Allergy status to sulfonamides
CPT/HCPCS: 99282

== ENCOUNTER 2018-10-14 15:17 | Emergency (ER) | payer MEDICARE, OTHER ==
[~2018-10-14] VITALS: Ht 160 cm; Wt 93.0 kg
[~2018-10-14 15:17] MED LIST changes: +VIBRAMYCIN100 MG ORAL
[2018-10-14 15:32] VITALS: BP 131/86
--- NOTE | 2018-10-14 15:34 | NUR ---
ED Nurse Note: Patient walked in to ER for possible mite bite. Patient has rash all over the body. no drainage or pus present at this moment. Patient alert and oriented x4 and ambulatory. skin clean and intact. calm and cooperative.
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
[2018-10-14] MEDS ORDERED: Ketorolac 30mg Inj IM ONE (15:45)
[2018-10-14] MEDS ORDERED: PREDNISONE20 M1 PO (15:46)
[2018-10-14] MEDS ORDERED: PERMETHRIN60 GM TOPIC (15:46)
[2018-10-14] MEDS ORDERED: DOXYCYCLINE HY100 M7 PO (15:46)
[2018-10-14] MEDS ORDERED: HYDROCORTISONE-30 GM TOPIC (15:46)
[2018-10-14 15:52] VITALS: BP 131/86
--- NOTE | 2018-10-14 15:53 | NUR ---
ER DISCHARGE NOTE: Patient is cleared to be discharged per ERPA, pt is aox4, on room air, with stable vital signs. pt was given dc and prescription instructions, pt was able to verbalize understanding, pt id band removed. pt is able to ambulate with steady gait. pt took all belongings.
== END 2018-10-14 15:50 | disposition home or self-care (01) ==
LOC: EMR 15:38
DX: T50.905A Adverse effect of unspecified drugs, medicaments and biological substances, initial encounter (principal); Y92.9 Unspecified place or not applicable; Z88.6 Allergy status to analgesic agent; Z88.0 Allergy status to penicillin; Z88.2 Allergy status to sulfonamides; L73.9 Follicular disorder, unspecified
CPT/HCPCS: 96372; 99283; J1885

== ENCOUNTER 2018-10-20 21:12 | Emergency (ER) | payer MEDICARE, OTHER ==
[~2018-10-20] VITALS: Ht 167.6 cm; Wt 95.3 kg
[~2018-10-20 21:12] MED LIST changes: +DOXYCYCLINE HY100 M7 PO; +HYDROCORTISONE-30 GM TOPIC; +PREDNISONE20 M1 PO
--- NOTE | 2018-10-20 22:10 | NUR ---
ED Nurse Note: Pt ambulated to ED from home c/o all over itching [id number], pt believes its mites. VSS
[2018-10-20] MEDS ORDERED: LORazepam 1mg tab ORAL ONE (22:15)
[2018-10-20 22:16] VITALS: BP 119/69
[2018-10-20] MEDS ORDERED: ROBAXIN500 MG PO (22:16)
--- NOTE | 2018-10-20 22:16 | Emergency Room Report ---
History of Present Illness General Chief Complaint: Skin Rash/Abscess Source: Patient Present Illness HPI Is a 53-year-old female with a history of chronic pain. She presents with complaint of body pain and spasm. Onset for last couple days. She is out of her Robaxin. No fever chills but no nausea no vomiting. Nothing made it better. Movement makes it worse. Denies any other complaint. Pain is 9 out of 10. Allergies: Coded Allergies: ASPIRIN (Verified Allergy, Intermediate, disorientation, 08/07/12) AMOXICILLIN (Verified Allergy, Unknown, 10/11/18) SULFAMETHOXAZOLE (Verified Allergy, Unknown, 11/10/17) TRIMETHOPRIM (Verified Allergy, Unknown, 11/10/17) NSAIDS (NON-STEROIDAL ANTI-INFLAMMA (Verified Adverse Reaction, Intermediate, GI UPSET, 01/18/12) Patient History Past Medical History: see triage record, old chart reviewed Past Surgical History: other Pertinent Family History: none Social History: Denies: smoking Last Menstrual Period: 10 YEARS AGO Now: No Immunizations: other Reviewed Nursing Documentation: PMH: Agreed; PSxH: Agreed Nursing Documentation-PMH Past Medical History: No History, Except For Hx Asthma: Yes Hx Gastrointestinal Problems: Yes - Peptic ulcer Review of Systems Eye: Denies: eye pain, blurred vision ENT: Denies: ear pain, nose congestion, throat swelling Respiratory: Denies: cough, shortness of breath Cardiovascular: Denies: chest pain, palpitations Gastrointestinal: Denies: abdominal pain, diarrhea, nausea, vomiting Musculoskeletal: Reports: muscle pain, muscle stiffness; Denies: back pain, joint pain Skin: Denies: rash Neurological: Denies: headache, numbness Endocrine: Denies: increased thirst, increased urine Hematologic/Lymphatic: Denies: easy bruising All Other Systems: negative except mentioned in HPI Physical Exam Vital Signs Date Time Temp Pulse Resp B/P (MAP) Pulse Ox O2 Delivery O2 Flow Rate FiO2 10/20/18 21:22 98.4 88 16 119/69 (86) 100 Room Air Vitals normal Sp02 EP Interpretation: reviewed, normal General Appearance: well appearing, no apparent distress, alert Head: normocephalic, atraumatic Eyes: bilateral eye PERRL, bilateral eye EOMI ENT: hearing grossly normal, normal pharynx Neck: full range of motion, supple, no meningismus Respiratory: chest non-tender, lungs clear, normal breath sounds Cardiovascular #1: regular rate, rhythm, no murmur Gastrointestinal: normal bowel sounds, non tender, no mass, no organomegaly, no bruit, non-distended Musculoskeletal: back normal, gait/station normal, normal range of motion Psychiatric: mood/affect normal Skin: other - Scattered excoriation on her face and arms from skin picking. Medical Decision Making Diagnostic Impression: Primary Impression: Chronic pain Qualified Codes: G89.4 - Chronic pain syndrome Additional Impression: Rash and other nonspecific skin eruption ER Course Is with muscle spasm and pain. No evidence of any infection. No trauma. Will discharge home. Last Vital Signs Date Time Temp Pulse Resp B/P (MAP) Pulse Ox O2 Delivery O2 Flow Rate FiO2 10/20/18 21:22 98.4 88 16 119/69 (86) 100 Room Air Status: improved Disposition: HOME, SELF-CARE Condition: Stable Scripts Methocarbamol* (ROBAXIN*) 500 Mg Tablet 500 MG PO TID, #21 TAB 0 Refills Prov: Erasmo Frederick MD 10/20/18 Additional Instructions: Follow up with your doctor in 7 days. Return if symptoms worsen. Erasmo Frederick MD Oct 20, 2018 22:16
[2018-10-20 22:20] VITALS: BP 119/69
--- NOTE | 2018-10-20 22:20 | NUR ---
ER DISCHARGE NOTE: Patient is cleared to be discharged per ERMD, pt is aox4, on room air, with stable vital signs. pt was given dc and prescription instructions, pt was able to verbalize understanding, pt id band removed. pt is able to ambulate with steady gait. pt took all belongings.
== END 2018-10-20 22:20 | disposition home or self-care (01) ==
LOC: EMR 22:15
DX: G89.4 Chronic pain syndrome (principal); R21 Rash and other nonspecific skin eruption; J45.909 Unspecified asthma, uncomplicated; Z88.6 Allergy status to analgesic agent; Z88.1 Allergy status to other antibiotic agents; Z88.2 Allergy status to sulfonamides; Z88.8 Allergy status to other drugs, medicaments and biological substances; Z87.11 Personal history of peptic ulcer disease
CPT/HCPCS: 99282

== ENCOUNTER 2018-11-06 13:07 | Emergency (ER) | payer MEDICARE, OTHER ==
[~2018-11-06] VITALS: Ht 170.2 cm; Wt 97.5 kg
[2018-11-06 13:13] VITALS: BP 133/87
--- NOTE | 2018-11-06 13:15 | NUR ---
ED Nurse Note: Patient walked in to ER due to skin itching. Patient was diagnosed with second degree sunburn 2 weeks ago at [facility]. Patient skin is dry with dry scabs. No bleeding noted. She also need a refill for her Gabapentin. Alert and oriented x4, verbally responsive. Afebrile.
[2018-11-06] MEDS ORDERED: GABAPENTIN800 MG ORAL (13:16)
[2018-11-06] MEDS ORDERED: PROPRANOLOL HCL80 M2 PO (13:16)
[2018-11-06 13:26] VITALS: BP 133/87
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
[2018-11-06] MEDS ORDERED: GABAPENTIN400 MG ORAL (13:40)
[2018-11-06] MEDS ORDERED: Ketorolac 30mg Inj IM ONE (13:45)
[2018-11-06] MEDS ORDERED: CYCLOBENZAPRINE10 MG ORAL (13:52)
--- NOTE | 2018-11-06 13:59 | NUR ---
ED Nurse Note: Pt cleared by ERMD for discharge. DC instructions/prescription was given and explained to pt and verbalized understanding of teachings. All medical deviecs such as ID band removed. Pt is AAO x4, ambulatory and left with all personal belongings.
== END 2018-11-06 13:59 | disposition home or self-care (01) ==
LOC: EMR 13:30
DX: G89.29 Other chronic pain (principal); Z76.0 Encounter for issue of repeat prescription; Z88.6 Allergy status to analgesic agent; Z88.2 Allergy status to sulfonamides; Z88.0 Allergy status to penicillin; R21 Rash and other nonspecific skin eruption
CPT/HCPCS: 96372; 99283; J1885

== ENCOUNTER 2018-11-08 10:30 | Emergency (ER) | payer MEDICARE, OTHER ==
[~2018-11-08] VITALS: Ht 167.6 cm; Wt 97.5 kg
[~2018-11-08 10:30] MED LIST changes: +GABAPENTIN400 MG ORAL; +GABAPENTIN800 MG ORAL; +PROPRANOLOL HCL80 M2 PO
--- NOTE | 2018-11-08 10:53 | NUR ---
ED Nurse Note: pt walked in due to lower back and neck pain started 3 days ago. pt stated she is bothered with the muscle spasm, pt was seen my pcp before and was told that her bones were fused, pt taking tylenol. pt able to walk. will continue to monitor.
[2018-11-08 10:55] VITALS: BP 148/84
[2018-11-08] MEDS ORDERED: Methocarbamol 750mg tab ORAL ONE (11:30)
--- NOTE | 2018-11-08 11:33 | Emergency Room Report ---
History of Present Illness General Chief Complaint: Back Pain-No Injury Source: Patient, Medical Record Present Illness HPI Patient presents with complaints of low back pain reports that she takes Neurontin and muscle relaxers However has ran out of her medications Denies any recent fall or trauma denies any headache Denies any focal weakness denies any saddle paresthesia or neuropathy in the Genital area Allergies: Coded Allergies: ASPIRIN (Verified Allergy, Intermediate, disorientation, 08/07/12) AMOXICILLIN (Verified Allergy, Unknown, 10/11/18) SULFAMETHOXAZOLE (Verified Allergy, Unknown, 11/10/17) TRIMETHOPRIM (Verified Allergy, Unknown, 11/10/17) NSAIDS (NON-STEROIDAL ANTI-INFLAMMA (Verified Adverse Reaction, Intermediate, GI UPSET, 01/18/12) Patient History Past Medical History: see triage record Last Menstrual Period: N/A Now: No Reviewed Nursing Documentation: PMH: Agreed; PSxH: Agreed Nursing Documentation-PMH Hx Asthma: Yes Hx Gastrointestinal Problems: Yes - Peptic ulcer Review of Systems All Other Systems: negative except mentioned in HPI Physical Exam Vital Signs Date Time Temp Pulse Resp B/P (MAP) Pulse Ox O2 Delivery O2 Flow Rate FiO2 11/08/18 10:39 98.4 100 18 148/84 (105) 95 Room Air Sp02 EP Interpretation: reviewed, normal General Appearance: well appearing, no apparent distress Head: normocephalic, atraumatic Eyes: bilateral eye PERRL, bilateral eye EOMI ENT: hearing grossly normal, normal pharynx Neck: supple Respiratory: lungs clear, normal breath sounds Cardiovascular #1: regular rate, rhythm Gastrointestinal: non tender, soft Musculoskeletal: other - Patient subjectively complains of para spinal discomfort L3-L4 no obvious midline step-offs were noted patient is ambulatory without focal deficit Neurologic: alert, oriented x3 Skin: other - Several areas of what appeared to be likely insect bite no obvious cellulitis Lymphatic: no adenopathy Medical Decision Making Diagnostic Impression: Primary Impression: Back pain Additional Impression: Drug-seeking behavior ER Course Patient's presentation is similar to previous presentation with similar complaints patient is ambulatory with no obvious acute findings on examination Multiple differential such as neurological, neurosurgical and musculoskeletal conditions considered it was discussed the importance of appropriate outpatient follow-up Patient will return with any changes Last Vital Signs Date Time Temp Pulse Resp B/P (MAP) Pulse Ox O2 Delivery O2 Flow Rate FiO2 11/08/18 10:55 98.4 100 18 148/84 95 Room Air Status: improved Disposition: HOME, SELF-CARE Condition: Improved Additional Instructions: Patient is provided with the discharge instructions notified to follow up with primary doctor in the next 2-3 days otherwise return to the er with any worsening symptoms. Please note that this report is being documented using DRAGON technology. This can lead to erroneous entry secondary to incorrect interpretation by the dictating instrument. Leslie Urban DO Nov 08, 2018 11:33
[2018-11-08 12:09] VITALS: BP 140/80
--- NOTE | 2018-11-08 12:09 | NUR ---
ER DISCHARGE NOTE: Patient is cleared to be discharged per ERMD, pt is aox4, on room air, with stable vital signs. pt was given dc and prescription instructions, pt was able to verbalize understanding, pt id band removed without complications. pt is able to ambulate with steady gait. pt took all belongings.
== END 2018-11-08 12:10 | disposition home or self-care (01) ==
LOC: EMR 11:15
DX: M54.5 Low back pain (principal); Z76.5 Malingerer [conscious simulation]; J45.909 Unspecified asthma, uncomplicated; Z88.6 Allergy status to analgesic agent; Z88.1 Allergy status to other antibiotic agents; Z88.2 Allergy status to sulfonamides; Z88.8 Allergy status to other drugs, medicaments and biological substances
CPT/HCPCS: 99282

== ENCOUNTER 2019-12-17 15:30 | Emergency (ER) | payer MEDICARE, OTHER ==
[~2019-12-17] VITALS: Ht 167.6 cm; Wt 136.1 kg
[2019-12-17 15:39] VITALS: BP 142/90
[2019-12-17] MEDS ORDERED: HYDROcodone/Acetamin 7.5/325 tab ORAL ONE (15:45)
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
[2019-12-17] MEDS ORDERED: TYLENOL EXTRA500 MG ORAL (16:09)
[2019-12-17 16:47] VITALS: BP 142/90
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
== END 2019-12-17 16:49 | disposition home or self-care (01) ==
LOC: EDBD 15:30 → EMR 16:05
DX: S40.012A Contusion of left shoulder, initial encounter (principal); Y04.2XXA Assault by strike against or bumped into by another person, initial encounter; Y92.9 Unspecified place or not applicable; Z88.6 Allergy status to analgesic agent; Z88.2 Allergy status to sulfonamides; Z88.0 Allergy status to penicillin
CPT/HCPCS: 99283